=== PATIENT | female | born 1980 | race Caucasian/White ===

== ENCOUNTER 2020-06-13 20:16 | Emergency (ER) | payer OTHER ==
--- OUTSIDE RECORDS SUMMARY | 2020-06-13 20:18 | XMS REPORT | Continuity of Care Document ---
:[address] [facility] t Address [address] [place] [address] Dr. Buckner. [address] [place] [address] Care Team Providers Name Role Phone Jason Del Real DO Attending Clinician Problems This patient has no known problems. Allergies, Adverse Reactions, Alerts This patient has no known allergies or adverse reactions. Medications This patient has no known medications. Procedures This patient has no known procedures. Encounters Start End Encounter Admission Attending Care Care Encounter Source Date/Time Date/Time Type Type Clinicians Facility Department ID 2020-05-06 2020-05-06 Emergency SAM Del Real [id number] 18:43:00 23:57:00 Frida Hernandez [id number] [place] [id number] [place] [id number] Results This patient has no known results.
[2020-06-13 22:19] LABS: Absolute Lymphocytes (CBC) 3.8 K/uL (0.7-4.9); Basophils % 0.9 % (0-1.3); Hematocrit 41.8 % (36.0-45.0); Lymphocytes % 30.2 % (15.3-44.8); MPV 9.6 fL (7.6-11.3); RBC Red Blood Cell Count 4.74 M/uL (3.86-4.86)
[2020-06-13 22:25] LABS: Urine Blood Negative (Negative); Urine Glucose Negative (Negative); Urine Protein Negative (Negative); Urine pH 7.5 (5.0-7.0)
[2020-06-13 22:34] LABS: Protime INR 1.04
[2020-06-13 22:44] LABS: ALT/SGPT 23 U/L (12-78); AST/SGOT 18 U/L (15-37); Albumin 3.3 g/dL (3.4-5.0); Alkaline Phosphatase 119 U/L (45-117); BUN Blood Urea Nitrogen 12 mg/dL (7-18); Bicarbonate 25 mmol/L (21-32); Bilirubin Direct < 0.1 mg/dL (0-0.2); Bilirubin Total 0.3 mg/dL (0.2-1.0); Glucose Level 87 mg/dL (74-106); Magnesium 2.2 mg/dL (1.8-2.4); NT PRO-BNP 141 pg/mL (<125); Potassium 3.6 mmol/L (3.5-5.1); Protein, Total 7.3 g/dL (6.4-8.2); Sodium Level 142 mmol/L (136-145); Troponin (Emerg Dept Use Only) < 0.02 ng/mL (0.0-0.045)
--- NOTE | 2020-06-14 00:24 | ER ---
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 Then my heart felt a little fluttery and I started throwing up. 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 Coronavirus screen: Client denies travel out of the [place] in the last 14 days. nausea, vomiting. Client presents with at least one sign or symptom that may indicate coronavirus-19. Standard/surgical mask placed on the client. Provider contacted for isolation considerations. Ebola Screen: Patient negative for fever greater than or equal to 101.5 degrees Fahrenheit, and additional compatible Ebola Virus Disease symptoms Patient denies exposure to infectious person. Patient denies travel to an Ebola-affected area in the 21 days before illness onset. No symptoms or risks identified at this time. Initial Sepsis Screen: Does the patient meet any 2 criteria? No. Patient's initial sepsis screen is negative. Does the patient have a suspected source of infection? No. Patient's initial sepsis screen is negative. Risk Assessment: Do you want to hurt yourself or someone else? Patient reports no desire to harm self or others. Onset of symptoms was June 13, 2020. 20:37 Method Of Arrival: Ambulatory ca1 20:37 Acuity: OJRDYN 3 ca1 CVT RN: 20:42 LMP N/A - Hysterectomy ca1 Historical: - Allergies: 20:42 Amoxicillin; ca1 20:42 Aspirin; ca1 - Home Meds: 20:42 clopidogrel 75 mg oral tab 1 tab once daily [Active]; carvedilol 3.125 mg oral tab 1 ca1 tab 2 times per day [Active]; atorvastatin 40 mg oral tab 1 tab once daily [Active]; nitroglycerin 0.4 mg SL subl 1 tab [Active]; - PMHx: 20:42 High Cholesterol; ca1 - PSHx: 20:42 open heart surgery; ca1 20:43 Hysterectomy; Cholecystectomy; ca1 - Immunization history:: Flu vaccine is not up to date. - Social history:: Smoking status: Patient reports the use of cigarette tobacco products, smokes one-half pack cigarettes per day. Screenin:54 Abuse screen: Denies threats or abuse. Denies injuries from another. Nutritional mg2 screening: No deficits noted. Tuberculosis screening: No symptoms or risk factors identified. Fall Risk IV access (20 points). Assessment: 21:52 General: Appears in no apparent distress. comfortable, Behavior is calm, cooperative. mg2 Pain: Complains of pain in chest Pain radiates to back of neck. Neuro: Level of Consciousness is awake, alert, obeys commands, Oriented to person, place, time, situation. Neuro: Reports dizziness. Cardiovascular: Capillary refill < 3 seconds Patient's skin is warm and dry. Respiratory: Airway is patent Respiratory effort is even, unlabored, Respiratory pattern is regular, symmetrical. GI: Reports nausea. GI: Abdomen is non-distended. : No signs and/or symptoms were reported regarding the genitourinary system. EENT: No signs and/or symptoms were reported regarding the EENT system. Derm: Skin is intact, is healthy with good turgor, Skin is pink, warm \T\ dry. normal. Musculoskeletal: Circulation, motion, and sensation intact. Capillary refill < 3 seconds. Vital Signs: 20:37 BP 131 / 74; Pulse 73; Resp 16 S; Temp 97.1(TE); Pulse Ox 98% on R/A; Weight 98.43 kg ca1 (R); Height 5 ft. 1 in. (154.94 cm); Pain 6/10; 06/14 00:41 BP 135 / 79; Pulse 70; Resp 18; Temp 98; Pulse Ox 100% on R/A; Pain 0/10; mg2 06/13 20:37 Body Mass Index 41.00 (98.43 kg, 154.94 cm) ca1 ED Course: 06/13 20:20 Patient arrived in ED. bp1 20:40 Triage completed. ca1 20:42 Arm band placed on right wrist. ca1 21:24 Mitchel Sanchez, ELLEI is Primary Nurse. mg2 21:31 Alex Rose PA is PHCP. jmm 21:31 Jason Oliva MD is Attending Physician. jmm 21:45 Inserted saline lock: 20 gauge in right forearm, using aseptic technique. Blood mg2 collected. 21:54 Patient has correct armband on for positive identification. mg2 21:54 No provider procedures requiring assistance completed. mg2 22:26 XRAY Chest (1 view) In Process Unspecified. EDMS 23:10 Inserted saline lock: 22 gauge in left antecubital area, using aseptic technique. Blood ds4 collected. 06/14 00:23 Ramy Lawrence MD is Referral Physician. [facility] 00:42 IV discontinued, intact, bleeding controlled, No redness/swelling at site. Pressure mg2 dressing applied. Administered Medications: No medications were administered Outcome: 00:23 Discharge ordered by . jmm 00:42 Discharged to home ambulatory. mg2 00:42 Condition: stable 00:42 Discharge instructions given to patient, Instructed on discharge instructions, follow up and referral plans. medication usage, Demonstrated understanding of instructions, follow-up care, medications, Prescriptions given X 1. 00:42 Patient left the ED. 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 Then my heart felt a little fluttery and I started throwing up. ca1
--- NOTE | 2020-06-14 00:24 | EDPHYS ---
Physician Documentation [facility] Name: Heather Schmitt Age: 40 yrs Sex: Female : 1980 Arrival Date: 06/13/2020 Time: 20:20 Bed 5 Private MD: ED Physician Jason Oliva HPI: 06/13 21:44 This 40 yrs old Female presents to ER via Ambulatory with complaints of jmm Nausea/Vomiting. 21:44 The patient presents to the emergency department with nausea, vomiting. Onset: The jmm symptoms/episode began/occurred gradually, 3 hour(s) ago. Possible causes: unknown. The symptoms are aggravated by nothing. The symptoms are alleviated by nothing. This is a 40 year old female with a history of ASD, HLP, HTN that presents to the ED with complaints of substernal chest pain beginning approx 3 hours ago. Pain has been constant. Patient states symptoms began with presyncopal episodes and multiple episodes of vomiting. Denies abdominal pain. . 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 - Social history:: Smoking status: Patient reports the use of cigarette tobacco products, smokes one-half pack cigarettes per day. ROS: 21:44 Constitutional: Negative for fever, chills, and weight loss. jmm 21:44 Cardiovascular: Positive for chest pain. 21:44 Abdomen/GI: Positive for vomiting. 21:44 Neuro: Positive for near syncope. 21:44 All other systems are negative. Exam: 21:44 Constitutional: This is a well developed, well nourished patient who is awake, alert, jmm and in no acute distress. Head/Face: atraumatic. Eyes: EOMI, no conjunctival erythema appreciated ENT: Moist Mucus Membranes Neck: Trachea midline, Supple Chest/axilla: Normal chest wall appearance and motion. Cardiovascular: Regular rate and rhythm. No edema appreciated Respiratory: Normal respirations, no respiratory distress appreciated Abdomen/GI: Non distended, soft Back: Normal ROM Skin: General appearance color normal MS/ Extremity: Moves all extremities, no obvious deformities appreciated, no edema noted to the lower extremities Neuro: Awake and alert, normal gait Psych: Behavior is normal, Mood is normal, Patient is cooperative and pleasant Vital Signs: 20:37 BP 131 / 74; Pulse 73; Resp 16 S; Temp 97.1(TE); Pulse Ox 98% on R/A; Weight 98.43 kg ca1 (R); Height 5 ft. 1 in. (154.94 cm); Pain 6/10; 06/14 00:41 BP 135 / 79; Pulse 70; Resp 18; Temp 98; Pulse Ox 100% on R/A; Pain 0/10; mg2 06/13 20:37 Body Mass Index 41.00 (98.43 kg, 154.94 cm) ca1 MDM: 06/13 21:43 Patient medically screened. [facility] 06/14 00:22 Data reviewed: vital signs, nurses notes. Counseling: I had a detailed discussion with [facility] the patient and/or guardian regarding: the historical points, exam findings, and any diagnostic results supporting the discharge/admit diagnosis, lab results, radiology results, the need for outpatient follow up, to return to the emergency department if symptoms worsen or persist or if there are any questions or concerns that arise at home. ED course: Patient is alert and non toxic in appearance in the ED. Patient refuses admission for chest pain. Patient advised to follow up with cardio for further evaluation. Patient is otherwise given strict return precautions. patient understood and agrees with the plan of care. . 06/13 21:34 Order name: Basic Metabolic Panel mg2 06/13 21:34 Order name: CBC with Diff mg2 06/13 21:34 Order name: LFT's mg2 06/13 21:34 Order name: Magnesium mg2 06/13 21:34 Order name: NT PRO-BNP mg2 06/13 21:34 Order name: PT-INR mg2 06/13 21:34 Order name: Troponin (emerg Dept Use Only) mg2 06/13 21:35 Order name: Basic Metabolic Panel; Complete Time: 22:44 EDMS 04 21:35 Order name: CBC with Automated Diff; Complete Time: 22:25 EDMS 04 21:35 Order name: Liver (Hepatic) Function; Complete Time: 22:44 EDMS 04 21:35 Order name: Magnesium; Complete Time: 22:44 EDMS 04 21:35 Order name: NT PRO-BNP; Complete Time: 22:44 EDMS 06/13 21:35 Order name: Protime (+INR); Complete Time: 22:37 EDMS 06/13 21:35 Order name: Troponin (Emerg Dept Use Only); Complete Time: 22:44 EDMS 06/13 20:43 Order name: EKG; Complete Time: 20:44 ca1 06/13 20:43 Order name: EKG - Nurse/Tech; Complete Time: 20:43 ca1 06/13 21:34 Order name: XRAY Chest (1 view) mg2 06/13 21:34 Order name: Cardiac monitoring; Complete Time: 21:52 mg2 06/13 21:34 Order name: IV Saline Lock; Complete Time: 21:52 mg2 06/13 21:34 Order name: Labs collected and sent; Complete Time: 21:52 mg2 06/13 21:34 Order name: O2 Per Protocol; Complete Time: 21:52 mg2 06/13 21:34 Order name: O2 Sat Monitoring; Complete Time: 21:52 mg2 06/13 21:43 Order name: Urine Test (obtain specimen); Complete Time: 22:24 [facility] 06/13 22:18 Order name: D-Dimer; Complete Time: 22:37 EDAR 06/13 22:25 Order name: Urine --Ancillary (enter results); Complete Time: 22:48 tt3 06/13 22:25 Order name: Urine Dipstick-Ancillary; Complete Time: 22:28 EDMS 06/13 22:43 Order name: Troponin (emerg Dept Use Only): draw at 1105; Complete Time: 00:22 [facility] Administered Medications: No medications were administered Disposition: 00:47 Co-signature as Attending Physician, Jason Oliva MD. ma2 Disposition: 06/14/20 00:23 Discharged to Home. Impression: Chest pain, unspecified. - Condition is Stable. - Discharge Instructions: Nonspecific Chest Pain. - Prescriptions for Zofran ODT 4 mg Oral tablet,disintegrating - place 1 tablet by TRANSLINGUAL route every 4-6 hours; 20 tablet. - Medication Reconciliation Form, Thank You Letter, Antibiotic Education, Prescription Opioid Use form. - Follow up: Ramy Lawrence MD; When: 2 - 3 days; Reason: Recheck today's complaints, Continuance of care, Re-evaluation by your physician. Signatures: Dispatcher [employer] [facility] Alex Rose PA PA Jason Dumont MD MD ma2 Mitchel Sanchez, RN RN mg2 Hue Fernandez RN RN ca1 Corrections: (The following items were deleted from the chart) 06/13 22:18 21:44 D-DIMER+COAG.LAB.BRZ ordered. [facility] 06/14 00:42 00:23 06/14/2020 00:23 Discharged to Home. Impression: Chest pain, unspecified. mg2 Condition is Stable. Forms are Medication Reconciliation Form, Thank You Letter, Antibiotic Education, Prescription Opioid Use. Follow up: Ramy Lawrence; When: 2 - 3 days; Reason: Recheck today's complaints, Continuance of care, Re-evaluation by your physician. carine
[2020-06-14 01:23] VITALS: BP 135/79; TEMP 98; O2SAT 100
--- NOTE | 2020-06-14 12:53 | RAD REPORT ---
EXAM DESCRIPTION: Chest Single View CLINICAL HISTORY: 1 years Female, CHEST PAIN COMPARISON: Chest radiograph dated 05/06/2019 FINDINGS/IMPRESSION: No focal lung consolidation. Interstitial edema. No pleural effusion. No pneumothorax. Unchanged prior median sternotomy. Cardiomediastinal silhouette is unchanged. No acute osseous abnormality. Electronically signed by: Randy Fairbanks DO 06/13/2020 10:50 PM CDT Due to temporary technical issues with the PACS/Fluency reporting system, reports are being signed by the in house radiologists without review as a courtesy to insure prompt reporting. The interpreting radiologist is fully responsible for the content of the report.
--- NOTE | 2020-06-14 16:35 | EKG ---
Test Date: 2020-06-13 Test Time: 20:48:17 [employer]: SARAH MEASUREMENT RESULTS: Intervals: Rate: 73 NH: 140 QRSD: 80 QT: 394 QTc: 434 [place]: P: 64 NH: 140 QRS: 98 T: 71 INTERPRETIVE STATEMENTS: Normal sinus rhythm Rightward axis RSR' or QR pattern in V1 suggests right ventricular conduction delay Nonspecific ST abnormality Abnormal ECG No previous ECG available for comparison Electronically Signed On 06-14-20 16:33:01 CDT by Ramy Lawrence
== END 2020-06-14 00:42 | disposition home or self-care (01) ==
LOC: ER 20:16
DX: R07.9 Chest pain, unspecified (principal); R11.2 Nausea with vomiting, unspecified; F17.210 Nicotine dependence, cigarettes, uncomplicated; E78.00 Pure hypercholesterolemia, unspecified
CPT/HCPCS: 36415; 71045; 80048; 80076; 81003; 81025; 83735; 83880; 84484; 85025; 85379; 85610; 93005; 99284

== ENCOUNTER 2020-12-29 21:35 | Emergency (ER) | payer OTHER ==
[2020-12-29] MEDS ORDERED: MORPHINE 2 MG/ML SYR ONE (23:06)
[2020-12-29] MEDS ORDERED: ONDANSETRON 4 MG/2 ML VIAL ONE (23:06)
[2020-12-29 23:09] LABS: Absolute Lymphocytes (CBC) 3.7 K/uL (0.7-4.9); Basophils % 1.5 % (0-1.3); Hematocrit 39.3 % (36.0-45.0); Lymphocytes % 33.2 % (15.3-44.8); MPV 8.9 fL (7.6-11.3); RBC Red Blood Cell Count 4.45 M/uL (3.86-4.86)
[2020-12-29 23:22] LABS: Protime INR 0.97
[2020-12-29 23:26] LABS: ALT/SGPT 29 U/L (12-78); AST/SGOT 19 U/L (15-37); Albumin 3.4 g/dL (3.4-5.0); Alkaline Phosphatase 119 U/L (45-117); BUN Blood Urea Nitrogen 14 mg/dL (7-18); Bicarbonate 27 mmol/L (21-32); Bilirubin Direct < 0.1 mg/dL (0-0.2); Bilirubin Total 0.2 mg/dL (0.2-1.0); Glucose Level 136 mg/dL (74-106); Magnesium 2.2 mg/dL (1.8-2.4); NT PRO-BNP 127 pg/mL (<125); Potassium 3.6 mmol/L (3.5-5.1); Protein, Total 7.8 g/dL (6.4-8.2); Sodium Level 142 mmol/L (136-145); Troponin (Emerg Dept Use Only) < 0.02 ng/mL (0.0-0.045)
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
[2020-12-30 03:12] VITALS: BP 142/80; TEMP 98.6; O2SAT 96
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
--- NOTE | 2020-12-31 14:24 | EKG ---
Test Date: 2020-12-29 Test Time: 22:10:52 Silver Steward: SHAUN MEASUREMENT RESULTS: Intervals: Rate: 72 DE: 154 QRSD: 84 QT: 400 QTc: 438 [place]: P: 58 DE: 154 QRS: 81 T: 73 INTERPRETIVE STATEMENTS: Normal sinus rhythm Nonspecific ST and T wave abnormality Abnormal ECG Compared to ECG 06/13/2020 20:48:17 Right-axis deviation no longer present ST (T wave) deviation still present Electronically Signed On 12-31-20 14:21:51 CDT by Ramy Lawrence
== END 2020-12-30 02:45 | disposition home or self-care (01) ==
LOC: ER 21:35
DX: R07.9 Chest pain, unspecified (principal); R10.9 Unspecified abdominal pain; V49.40XA Driver injured in collision with unspecified motor vehicles in traffic accident, initial encounter; Z88.1 Allergy status to other antibiotic agents; Z88.6 Allergy status to analgesic agent; F17.210 Nicotine dependence, cigarettes, uncomplicated
CPT/HCPCS: 93005; 85025; 80048; 36415; 83735; 85610; 80076; 84484; 83880; 70450; 72125; 71260; 74177; 71045; 96375; 96374; 99284; Q9967; J2270; J2405

== ENCOUNTER 2021-01-20 18:44 | Emergency (ER) | payer OTHER, SELFPAY ==
--- OUTSIDE RECORDS SUMMARY | 2021-01-20 18:47 | XMS REPORT | Continuity of Care Document ---
:1980 Author Organization [facility] t Address [address] [place] [address] Care Team Providers Name Role Phone Jason Mata DO Attending Clinician Jason MATA Attending Clinician Unavailable Problems Condition Condition Condition Status Onset Resolution Last Treating Co mments Source Name Details Category Date Date Treatment Clinician Date No known No known Disease Unive rs active active ity of problems problems [facility] Allergies, Adverse Reactions, Alerts Allergy Allergy Status Severity Reaction(s) Onset Inactive Treating Comm ents Source Name Type Date Date Clinician Amoxicil Propensi Active Rash Univer s glenis ty to 3-05 ity of adverse 00:00: [place] reaction 00 Medical [facility] Aspirin Propensi Active Rash 2020-0 Univers ty to 3-05 ity of adverse 00:00: [place] reaction 00 Medical Branch AMOXICIL DRUG Active Rash 2020-0 Univers GLENIS INGREDI 3-05 ity of 00:00: [place] 00 Medical Branch ASPIRIN DRUG Active Rash 2020-0 Univers INGREDI 3-05 ity of 00:00: [place] 00 Medical Branch Social History Social Habit Start Date Stop Date Quantity Comments Source Sex Assigned At Uni versity of [facility] Exposure to SARS-CoV-2 Not sure [facility] [place] (event) [facility] Smoking Status Start Date Stop Date Source Unknown if ever smoked Universit y of [facility] Medications Ordered Filled Start Stop Current Ordering Indication Dosage Frequency Signature Comments Components Source Medication Medication Date Date Medication? Clinician (SIG) Name Name FENTanyl PF 2020- No 50ug 50 mcg, Un shady (SUBLIMAZE 3-06 03-06 Slow IV ity o f (PF)) 04:15: 03:14 Push, [place] injection 00 :00 ONCE, 1 Medical 50 mcg dose, Fri Geff 05/06/20 at 2215, Routine maalox:diph 2020- No 15mL 15 mL, Uni vers enhydrAMINE 05-07 Oral, ity of :lidocaine 03:15: 03:14 ONCE, 1 Tommy as 2 % viscous 00 :00 dose, Fri Med ical 1:1:1 05/06/20 at Geff (FIRST-MOUT 2114, IRIS HWASH BLM) oral suspension 15 mL ondansetron 2020- No 4mg 4 mg, Slow Univers (ZOFRAN 05-07 IV Push, ity of (PF)) 03:00: 03:02 ONCE, 1 [place] injection 4 00 :00 dose, Fri Med ical mg 05/06/20 at Branch 2100, IRIS ketorolac 2020- No 30mg 30 mg, Unive rs (TORADOL) 05-07 Slow IV ity of injection 01:45: 01:51 Push, [place] 30 mg 00 :00 ONCE, 1 Medical dose, [facility] 05/06/20 at 1945, IRIS
Fa culty member approving Restricted medication : FRIDA MATA sodium Yes 5mL 5 mL, Univers chloride 05-07 Intravenou ity o f (NS) 00:54: s, PRN, [place] injection 5 41 Starting Medi cody mL [facility] 05/06/20 Branch at 1854, Until Discontinu ed, Routine, IV line flushing No known No Univers medications [facility] Vital Signs Vital Name Observation Time Observation Value Comments Source Systolic blood 2020-05-07 05:00:00 135 mm[Hg] Univer sity of pressure [facility] Diastolic blood 2020-05-07 05:00:00 76 mm[Hg] Unive rsity of pressure [facility] Heart rate 2020-05-07 05:00:00 63 [facility] Respiratory rate 2020-05-07 05:00:00 20 /min [facility] Oxygen saturation in 2020-05-07 05:00:00 95 /min University of Arterial blood by [facility] Pulse oximetry Branch Body temperature 2020-05-07 00:50:00 37 Lacy [facility] Body height 2020-05-07 00:48:00 157.5 cm Universi ty [facility] Body weight 2020-05-07 00:48:00 97.523 kg Universi ty [facility] BMI 2020-05-07 00:48:00 39.32 kg/m2 Universi ty [facility] Systolic blood 2020-05-07 05:00:00 135 mm[Hg] Univer sity of [facility] Diastolic blood 2020-05-07 05:00:00 76 mm[Hg] [facility] Heart rate 2020-05-07 05:00:00 63 /min [facility] Respiratory rate 2020-05-07 05:00:00 20 /min [facility] Oxygen saturation in 2020-05-07 05:00:00 95 /min [facility] Arterial blood by [facility] Pulse oximetry Branch Body temperature 2020-05-07 00:50:00 37 Lacy [facility] Body height 2020-05-07 00:48:00 157.5 cm Universi ty [facility] Body weight 2020-05-07 00:48:00 97.523 kg [facility] BMI 2020-05-07 00:48:00 39.32 kg/m2 [facility] Procedures Procedure Date / Time Performing Clinician Source Performed TROPONIN I 2020-05-07 03:04:00 Frida Mata [facility] XR CHEST 1 VW 2020-05-07 01:09:33 Heladio Robertson [facility] NOTICE OF PRIVACY 2020-05-07 01:09:22 Doctor Unassigned, No [facility] PRACTICES Name Medical Branch LIPASE 2020-05-07 00:57:00 Heladio Robertson [facility] TROPONIN I 2020-05-07 00:57:00 Heladio Robertson [facility] COMP. METABOLIC PANEL 2020-05-07 00:57:00 Heladio Robertson [facility] ([id number]) Medical Branch CBC WITH DIFF 2020-05-07 00:57:00 Robertson, [facility] o f [facility] PROTHROMBIN TIME / INR 2020-05-07 00:57:00 [facility]io [facility] ACTIVATED PARTIAL 2020-05-07 00:57:00 Singer Heladio [facility] THRMPLAS [facility] N-TERMINAL PRO-BNP 2020-05-07 00:57:00 Frida Mata [facility] CONSENT/REFUSAL FOR 2020-05-07 00:39:34 Doctor Unassigned, No Un [facility] DIAGNOSIS AND TREATMENT Name Medical Branch Encounters Start End Encounter Admission Attending Care Care Encounter Source Date/Time Date/Time Type Type Clinicians Facility Department ID 2020-05-06 2020-05-06 [facility] [id number] [facility] 18:43:00 23:57:[id number] [facility] [id number] [facility] [id number] [address] 2020-05-06 2020-05-06 [facility] [id number] 18:43:00 23:57:00 Frida Hernandez [id number] [place] [id number] [place] [id number] [facility] 2020-05-06 2020-05-06 Emergency [facility] [id number] [facility] 18:43:00 18:43:00 FRIDA alvares [facility] Results Test Description Test Time Test Comments Results Result Comments Source Troponin I 2020-05-07 03:35:00 Test Item Value Reference Range Interpretation Comme nts TROPONIN I (test code = 0.001 ng/mL See_Comment [Au tomated message] The [id number]) system which ge nerated this result tra nsmitted reference range : <=0.034. The reference r dagoberto was not used to int erpret this result as normal/abnormal . AMADOU (test code = AMADOU) Equal or Less than 0.034 ng/ml---Normal ?Note: Cardiac troponin begins to rise 3-4 hours after the onset of ischemia. Repeat in 4-6 hours if the sample was drawn within 3-4 hours of the onset of the symptom and found normal. Between 0.035 and 0.120 ng/mL--- Borderline. Questionable myocardial injury or necrosis ? ?Note: Serial measurement may be necessary to confirm or exclude the diagnosis of myocardial injury or necrosis; Clinical correlation (symptoms, EKGs, imaging studies, and others) required; Repeat in 4-6 hours if clinically indicated. ? Equal or Higher than 0.121 ng/mL---Abnormal. Myocardial Injury or Necrosis Likely ? Biotin has been reported to cause a negative bias, interpret results relative to patient's use of biotin. ? Lab Interpretation (test Normal code = 06309-7) [facility] [id number] 02:42:22 No acute cardiopulmonary abnormality. Preliminary Report Dictated by Resident: Flaca Bowden MD., have reviewed this study and agree with theabove report.XR CHEST 1 VW HISTORY:40 years-old; Female; cp COMPARISON: None TECHNIQUE: SINGLE VIEW CHEST RADIOGRAPH. FINDINGS: The lungs are well-expanded and clear with no focal consolidation. There isno pleural effusion or pneumothor ax. The cardiac silhouette is within normal limits. There is no acute osseous abnormality. Multiple sternotomy wires are seen. [facility], Radiant Results Inft User - 05/06/2020 8:43 PM CSTXR CHEST 1 VWHISTORY: 40 years-old; Female; cp COMPARISON: NoneTECHNIQUE: SINGLE VIEW CHEST RADIOGRAPH.FINDINGS:The lungs are well-expanded and clear with no focal consolidation. There isno pleural effusion or pneumothorax.The cardiac silhouette is within normal limits.There is no acute osseous abnormality. Multiple sternotomy wires are seen.IMPRESSIONNo acute cardiopulmonary abnormality.Preliminary Report Dictated byResident: Flaca Harvey MD., have reviewed this study and agree with theabovereport.[facility] [id number] 02:00:00 Test Item Value Reference Range Interpretation Comments NT-proBNP (test code 126 pg/mL See_Comment H [Autom ated = [id number]) message] The system which generated this result transmitted reference range : <=125. The reference range was not used to interpret this result as normal/abnormal . AMADOU (test code = AMADOU) Biotin has been reported to cause a negative bias, interpret results relative to patient's use of biotin. Lab Interpretation Abnormal (test code = 98166-1) [facility] [id number] 01:53:00 Test Item Value Reference Range Interpretation Comments TROPONIN I (test 0.002 ng/mL See_Comment [Automated code = 7854028201) message] The system which generated this result transmitted reference range : <=0.034. The reference range was not used to interpret this result as normal/abnormal . AMADOU (test code = Equal or Less than AMADOU) 0.034 ng/ml---Normal ?Note: Cardiac troponin begins to rise 3-4 hours after the onset of ischemia. Repeat in 4-6 hours if the sample was drawn within 3-4 hours of the onset of the symptom and found normal. Between 0.035 and 0.120 ng/mL--- Borderline. Questionable myocardial injury or necrosis ? ?Note: Serial measurement may be necessary to confirm or exclude the diagnosis of myocardial injury or necrosis; Clinical correlation (symptoms, EKGs, imaging studies, and others) required; Repeat in 4-6 hours if clinically indicated. ? Equal or Higher than 0.121 ng/mL---Abnormal. Myocardial Injury or Necrosis Likely ? Biotin has been reported to cause a negative bias, interpret results relative to patient's use of biotin. ? Lab Interpretation Normal (test code = 09760-7) [facility]OLIC PANEL ([id number])2020-05-07 01:43:00 Test Item Value Reference Range Interpretation Comments NA (test code = 140 mmol/L 135-145 6300833093) K (test code = 3.8 mmol/L 3.5-5 6896597634) CL (test code = 104 mmol/L 98-108 8517386177) CO2 TOTAL (test code = 29 mmol/L 23-31 1807798118) AGAP (test code = 2-16 5631408169) BUN (test code = 15 mg/dL 7-23 0468294490) GLUCOSE (test code = 85 mg/dL 70-110 2410791566) CREATININE (test code = 0.69 mg/dL 0.5-1.04 7196758976) TOTAL BILI (test code = 0.5 mg/dL 0.1-1.3 8893798070) CALCIUM (test code = 10.0 mg/dL 8.6-10.6 9054507039) T PROTEIN (test code = 7.6 g/dL 6.3-8.2 3405124830) ALBUMIN (test code = 4.4 g/dL 3.5-5 8089448583) ALK PHOS (test code = 126 U/L 34-122 H 3076126333) ALTv (test code = 21 U/L 5-35 1742-6) AST(SGOT) (test code = 25 U/L 13-40 8508466630) eGFR Calculation mL/min/1.73m2 (Non-) (test code = 5227848363) eGFR Calculation mL/min/1.73m2 () (test code = 5015945506) AMADOU (test code = AMADOU) Association of Glomerular Filtration Rate (GFR) and Staging of Kidney Disease* + --+ --+ ------+| GFR (mL/min/1.73 m2) ?| With Kidney Damage ?| ?Without Kidney Damage+ --------+ --------+ +| ?>90 ?| ?Stage one ?| ? Normal ?+ ---+ ---+ -------+| ?60-89 ?| ?Stage two ?| ? Decreased GFR ? + --+ --+ ------+| ?30-59 ?| ?Stage three ?| ? Stage three ? + --+ --+ ------+| ?15-29 ?| ?Stage four ? | ? Stage four ?+ ---+ ---+ -------+| ?<15 (or dialysis) ? ?| ?Stage five ? | ? Stage five ?+ ---+ ---+ -------+ *Each stage assumes the associated GFR level has been in effect for at least three months. ?Stages 1 to 5, with or without kidney disease, indicate chronic kidney disease. Notes: Determination of stages one and two (with eGFR >59mL/min/1.73 m2) requires estimation of kidney damage for at least three months as defined by structural or functional abnormalities of the kidney, manifested by either:Pathological abnormalities or Markers of kidney damage (including abnormalities in the composition of the blood or urine or abnormalities in imaging tests). Lab Interpretation Abnormal (test code = 43656-1) [facility], [id number] 01:42:00 Test Item Value Reference Range Interpretation Comments LIPASE (test code = 7195791343) 72 U/L 0-220 Lab Interpretation (test code = Normal 97831-6) [facility] Hospital[facility]PTT2021-03-06 01:39:00 Test Item Value Reference Range Interpretation Comments APTT Patient (test See_Comment [Automat ed code = 3173-2) message] The system which generated this result transmitted reference range : 23 - 38 Seconds . The reference range was not used to interpr et this result as normal/abnormal . AMADOU (test code = AMADOU) The [facility] patient population mean normal value for aPTT is 30 seconds. Lab Interpretation Normal (test code = 93778-3) [facility] HospitalPROTHROMBIN TIME / [id number] 01:36:00 Test Item Value Reference Range Interpretation Comments PROTIME PATIENT (test See_Comment [Auto mated message] code = 5964-2) The system wh ich generated this result transmitted ref erence range: 12.0 - 1 4.7 Seconds. The re ference range was not u sed to interpret this result as normal/abnor mal. INR (test code = 6301-6) Nor mal INR <1.1; Warfarin Therap eutic range 2.0 to 3. 0 or 2.5 to 3.5, dep ending upon the indica tions. Lab Interpretation (test Normal code = 63754-1) [facility] WITH [id number] 01:32:00 Test Item Value Reference Range Interpretation Comments WBC (test code = See_Comment H [Automated 6690-2) message] The sy stem which generated this result transmitted reference range : 4.30 - 11.10 10*3/?L. The reference range was not used to interpret this result as normal/abnormal . RBC (test code = See_Comment [Automated 789-8) message] The sy stem which generated this result transmitted reference range : 3.93 - 5.25 10*6/?L. The reference range was not used to interpret this result as normal/abnormal . HGB (test code = 15.1 g/dL 11.6-15 H 718-7) HCT (test code = 45.0 % 35.7-45.2 4544-3) MCV (test code = 89.5 fL 80.6-95.5 787-2) MCH (test code = 30.0 pg 25.9-32.8 785-6) MCHC (test code = 33.6 g/dL 31.6-35.1 786-4) RDW-SD (test code = 42.9 fL 39-49.9 36122-0) RDW-CV (test code = 13.1 % 12-15.5 788-0) PLT (test code = See_Comment H [Automated 777-3) message] The sy stem which generated this result transmitted reference range : 166 - 358 10*3/ ?L. The reference r dagoberto was not used to interpret this result as normal/abnormal . MPV (test code = 11.1 fL 9.5-12.9 83082-5) NRBC/100 WBC (test See_Comment [Automat ed code = 7721216374) message] The system which generated this result transmitted reference range : 0.0 - 10.0 /100 WBCs. The refer ence range was not u sed to interpret th is result as normal/abnormal . NRBC x10^3 (test code <0.01 See_Comment [Auto mated = 3146413395) message] The s ystem which generated this result transmitted reference range : 10*3/?L. The reference range was not used to interpret this result as normal/abnormal . GRAN MAT (NEUT) % 58.0 % (test code = 770-8) IMM GRAN % (test code 0.50 % = 8736601117) LYMPH % (test code = 32.3 % 736-9) MONO % (test code = 6.7 % 5905-5) EOS % (test code = 1.6 % 713-8) BASO % (test code = 0.9 % 706-2) GRAN MAT x10^3(ANC) 6.47 10*3/uL 1.88-7.09 (test code = 8193182017) IMM GRAN x10^3 (test 0.06 10*3/uL 0-0.06 code = 7672377336) LYMPH x10^3 (test code 3.61 10*3/uL 1.32-3.29 H = 731-0) MONO x10^3 (test code 0.75 10*3/uL 0.33-0.92 = 742-7) EOS x10^3 (test code = 0.18 10*3/uL 0.03-0.39 711-2) BASO x10^3 (test code 0.10 10*3/uL 0.01-0.07 H = 704-7) Lab Interpretation Abnormal (test code = 46906-4) [facility]"
[2021-01-20] MEDS ORDERED: HYDROCODONE/APAP 5/325 MG TAB ONE (19:48)
--- NOTE | 2021-01-20 19:58 | RAD REPORT ---
EXAM DESCRIPTION: RAD - Shoulder Left 2 View - 01/20/2021 7:49 pm CLINICAL HISTORY: Left shoulder pain FINDINGS: No fracture or dislocation is seen. No significant bone or joint abnormality noted
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
--- NOTE | 2021-01-20 20:35 | EDPHYS ---
Physician Documentation [facility] Name: Heather Schmitt Age: 40 yrs Sex: Female : 1980 Arrival Date: 01/20/2021 Time: 18:50 Bed 11 Private MD: ED Physician Bhavin Montoya HPI: 01/20 19:41 This 40 yrs old Female presents to ER via Ambulatory with complaints of Shoulder Injury.mh7 19:41 The patient or guardian complains of pain, that is acute. left shoulder. Context: The mh7 problem was sustained at an unknown site, resulted from an unknown reason, The patient experiences decreased range of motion, when attempts to raise arm, The patient reports no obvious deformity. Onset: The symptoms/episode began/occurred 1 week(s) ago. Modifying factors: the symptoms are alleviated by remaining still, shoulder immobilizer, The symptoms are aggravated by lifting weight, movement, rotation of arm. Associated signs and symptoms: Pertinent negatives: abdominal pain, chest pain, diaphoresis, dyspnea, neck pain, shortness of breath, tingling. Severity of symptoms: At their worst the symptoms were moderate, 4 day(s) ago, in the emergency department the symptoms are unchanged. Treatment prior to arrival includes: prescription medications, Ultram or Ultracet, yesterday. The patient has been recently seen by a physician: the patient's primary care provider. 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 - Social history:: Smoking status: Patient reports the use of cigarette tobacco products, smokes one-half pack cigarettes per day. ROS: 19:41 Constitutional: Negative for fever, chills, and weight loss, Eyes: Negative for injury, mh7 pain, redness, and discharge, ENT: Negative for injury, pain, and discharge, Neck: Negative for injury, pain, and swelling, Cardiovascular: Negative for chest pain, palpitations, and edema, Respiratory: Negative for shortness of breath, cough, wheezing, and pleuritic chest pain, Abdomen/GI: Negative for abdominal pain, nausea, vomiting, diarrhea, and constipation, Back: Negative for injury and pain, : Negative for injury, bleeding, discharge, and swelling, Skin: Negative for injury, rash, and discoloration, Neuro: Negative for headache, weakness, numbness, tingling, and seizure, Psych: Negative for depression, anxiety, suicide ideation, homicidal ideation, and hallucinations, Allergy/Immunology: Negative for hives, rash, and allergies, Endocrine: Negative for neck swelling, polydipsia, polyuria, polyphagia, and marked weight changes, Hematologic/Lymphatic: Negative for swollen nodes, abnormal bleeding, and unusual bruising. Exam: 19:41 Constitutional: This is a well developed, well nourished patient who is awake, alert, mh7 and in no acute distress. Head/Face: Normocephalic, atraumatic. Eyes: Pupils equal round and reactive to light, extra-ocular motions intact. Lids and lashes normal. Conjunctiva and sclera are non-icteric and not injected. Cornea within normal limits. Periorbital areas with no swelling, redness, or edema. Neck: Trachea midline, no thyromegaly or masses palpated, and no cervical lymphadenopathy. Supple, full range of motion without nuchal rigidity, or vertebral point tenderness. No Meningismus. Chest/axilla: Normal chest wall appearance and motion. Nontender with no deformity. No lesions are appreciated. Cardiovascular: Regular rate and rhythm with a normal S1 and S2. No gallops, murmurs, or rubs. Normal PMI, no JVD. No pulse deficits. Respiratory: Lungs have equal breath sounds bilaterally, clear to auscultation and percussion. No rales, rhonchi or wheezes noted. No increased work of breathing, no retractions or nasal flaring. Abdomen/GI: Soft, non-tender, with normal bowel sounds. No distension or tympany. No guarding or rebound. No evidence of tenderness throughout. Back: No spinal tenderness. No costovertebral tenderness. Full range of motion. Skin: Warm, dry with normal turgor. Normal color with no rashes, no lesions, and no evidence of cellulitis. 19:41 Neuro: Awake and alert, GCS 15, oriented to person, place, time, and situation. Cranial nerves II-XII grossly intact. Motor strength 5/5 in all extremities. Sensory grossly intact. Cerebellar exam normal. Normal gait. Psych: Awake, alert, with orientation to person, place and time. Behavior, mood, and affect are within normal limits. 19:41 Musculoskeletal/extremity: Extremities: noted in the left shoulder: pain, tenderness, ROM: limited active range of motion due to pain, in the left shoulder, limited passive range of motion due to pain, in the left shoulder, Circulation is intact in all extremities. Sensation intact. Compartment Syndrome exam of affected extremity: is normal. no numbness, no tingling, no sensation deficit, no palor, no weak pulses, Joints: the left shoulder displays painful range of motion, tenderness, Weight bearing: able to fully bear weight, without difficulty, Tendon exam: specific tendon testing normal through active and passive range of motion Vital Signs: 19:11 BP 147 / 104; Pulse 76; Resp 16; Pulse Ox 98% on R/A; Weight 96.62 kg; Height 5 ft. 3 iw in. (160.02 cm); Pain 8/10; 19:59 Temp 97.9(O); aj1 19:11 Body Mass Index 37.73 (96.62 kg, 160.02 cm) iw MDM: 20:31 Differential diagnosis: Anterior dislocation without fracture, Posterior dislocation mh7 without fracture, DJD, tendonitis, Musculoskeletal pain. Data reviewed: vital signs, nurses notes, old medical records, radiologic studies, plain films. Data interpreted: Pulse oximetry: on room air is 98 %. Interpretation: normal. Counseling: I had a detailed discussion with the patient and/or guardian regarding: the historical points, exam findings, and any diagnostic results supporting the discharge/admit diagnosis, the presence of at least one elevated blood pressure reading (>120/80) during this emergency department visit, radiology results, the need for outpatient follow up, a orthopedic surgeon, to return to the emergency department if symptoms worsen or persist or if there are any questions or concerns that arise at home. Response to treatment: the patient's symptoms have markedly improved after treatment. 20:34 Patient medically screened. mh7 20:35 ED course: Well-appearing, no acute distress, vital signs stable, neurovascular intact, mh7 no focal neurological deficits. Discussed test results and findings with the patient and recommend follow-up with orthopedics for further evaluation. Patient has a recently filled prescription for Meloxicam that was prescribed by her doctor but she has not started taking the medication. Advised her to take medication as prescribed. She has a shoulder immobilizer which she has been using.. 01/20 19:40 Order name: Shoulder Left (2 View) XRAY; Complete Time: 20:21 [facility] Administered Medications: 19:55 Drug: Brigantine (HYDROcodone-acetaminophen) 5 mg-325 mg 1 tabs Route: PO; aj1 Disposition Summary: 01/20/21 20:34 Discharge Ordered Location: Home [facility] Problem: an ongoing problem [facility] Symptoms: have improved [facility] Condition: Stable [facility] Diagnosis - Shoulder Pain, Left mh7 - Musculoskeletal Pain [facility] Followup: [facility] - With: Private Physician - When: 1 - 2 days - Reason: Worsening of condition, Recheck today's complaints, Continuance of care, Re-evaluation by your physician Followup: [facility] - With: Abdon Benavides MD - When: 2 - 3 days - Reason: Worsening of condition, Further diagnostic work-up, Recheck today's complaints Discharge Instructions: - Discharge Summary Sheet 7 - Musculoskeletal Pain 7 - Shoulder Pain, [id number] [facility] Forms: - Medication Reconciliation Form [facility] - Thank You Letter [facility] - Antibiotic Education [facility] - Prescription Opioid Use [facility] Signatures: Dispatcher [employer] Domenica Jaimes RN RN aj1 Inga Del Real RN RN iw Bhavin Montoya MD MD [facility]
[2021-01-20 21:39] VITALS: BP 147/104; O2SAT 98
[2021-01-20 21:40] VITALS: TEMP 97.9
== END 2021-01-20 20:49 | disposition home or self-care (01) ==
LOC: ER 18:44
DX: M79.18 Myalgia, other site (principal); F17.210 Nicotine dependence, cigarettes, uncomplicated; Z88.6 Allergy status to analgesic agent; Z88.1 Allergy status to other antibiotic agents
CPT/HCPCS: 99283

== ENCOUNTER 2021-09-18 06:31 | Emergency (ER) | payer SELFPAY ==
--- NOTE | 2021-09-18 09:28 | EDPHYS ---
Physician Documentation [facility] Name: Heather Schmitt Age: 41 yrs Sex: Female : 1980 Arrival Date: 09/18/2021 Time: 06:35 Bed 11 Private MD: ED Physician Lavon Wooten HPI: 09/18 09:27 This 41 yrs old Female presents to ER via Ambulatory with complaints of Fever, Pain All ms3 Over. 09:27 The patient reports fever, that was measured at 102.6 degrees Fahrenheit. Onset: The ms3 symptoms/episode began/occurred 3 day(s) ago. Modifying factors: there are no obvious modifying factors. Associated signs and symptoms: Pertinent positives: chills, cough. Severity of symptoms: At their worst the symptoms were moderate in the emergency department the symptoms are unchanged Pain is currently a / 10. 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 - Social history:: Smoking status: Patient reports the use of cigarette tobacco products. ROS: 09:27 Eyes: Negative for injury, pain, redness, and discharge, Neck: Negative for injury, ms3 pain, and swelling, Cardiovascular: Negative for chest pain, and palpitations. 09:27 : Negative for injury, bleeding, discharge, and swelling, MS/Extremity: Negative for injury and deformity, Skin: Negative for injury, rash, and discoloration. 09:27 Constitutional: Positive for body aches, chills, fever. 09:27 Respiratory: Positive for cough. 09:27 All other systems are negative. Exam: 09:27 Constitutional: This is a well developed, well nourished patient who is awake, alert, ms3 and in no acute distress. Head/Face: Normocephalic, atraumatic. ENT: Nares patent. No nasal discharge, no septal abnormalities noted. Tympanic membranes are normal and external auditory canals are clear. Oropharynx with no redness, swelling, or masses, exudates, or evidence of obstruction, uvula midline. Mucous membranes moist. Neck: Trachea midline, no cervical lymphadenopathy. Supple, full range of motion without nuchal rigidity, or vertebral point tenderness. No Meningismus. Chest/axilla: Normal chest wall appearance and motion. Nontender with no deformity. Cardiovascular: Regular rate and rhythm with a normal S1 and S2. No gallops, murmurs, or rubs. Normal PMI, no JVD. No pulse deficits. Respiratory: Lungs have equal breath sounds bilaterally, clear to auscultation and percussion. No rales, rhonchi or wheezes noted. No increased work of breathing, no retractions or nasal flaring. Abdomen/GI: Soft, non-tender, with normal bowel sounds. No distension or tympany. No guarding or rebound. No evidence of tenderness throughout. Psych: Awake, alert, with orientation to person, place and time. Behavior, mood, and affect are within normal limits. Vital Signs: 06:55 BP 119 / 90; Pulse 94; Resp 18 S; Temp 98.3(O); Pulse Ox 98% on R/A; Weight 97.52 kg bb (R); Height 5 ft. 1 in. (154.94 cm) (R); Pain 7/10; 06:55 Body Mass Index 40.62 (97.52 kg, 154.94 cm) bb MDM: 09:13 Patient medically screened. ms3 09:27 Differential diagnosis: viral Infection, URI, COVID. ms3 09:27 Data reviewed: vital signs, nurses notes, lab test result(s), and as a result, I will ms3 discharge patient. Counseling: I had a detailed discussion with the patient and/or guardian regarding: the historical points, exam findings, and any diagnostic results supporting the discharge/admit diagnosis, lab results, the need for outpatient follow up, to return to the emergency department if symptoms worsen or persist or if there are any questions or concerns that arise at home. ED course: Discussed labs , PE findings with patient. Patient to follow up with PMD in 2-3 days. Patient understands/ agrees with plan. All questions answered. Return precautions given to include worsening symptoms, or any other concerns. Patient is improved, in NAD, non-toxic appearing, ambulatory in ED, speaking full sentences. . 09/18 07:01 Order name: COVID-19 SARS RT PCR (Document "Date of Onset" if Symptomatic); Complete bb Time: 09:13 09/18 07:01 Order name: Flu; Complete Time: 09:03 bb Administered Medications: No medications were administered Disposition Summary: 09/18/21 09:27 Discharge Ordered Location: Home ms3 Condition: Stable ms3 Diagnosis - SARS-associated coronavirus as the cause of diseases classified elsewhere ms3 - Fever, unspecified ms3 - Myalgia ms3 Followup: ms3 - With: Robe Romero DO - When: 2 - 3 days - Reason: Recheck today's complaints Discharge Instructions: - Discharge Summary Sheet ms3 - COVID-19 ms3 - 10 Things You Can Do to Manage Your COVID-19 Symptoms at Home - [facility] ms3 Forms: - Medication Reconciliation Form ms3 - Thank You Letter ms3 - Antibiotic Education ms3 - Prescription Opioid Use ms3 Prescriptions: - Ibuprofen 600 mg Oral Tablet - take 1 tablet by ORAL route every 6 hours As needed take with food; 30 tablet; ms3 Refills: 0, Product Selection Permitted Signatures: Dispatcher [employer] Phyllis Waller RN RN Lavon Velazquez DO DO ms3
--- NOTE | 2021-09-18 09:28 | ER ---
Nurse's Notes [facility] Name: Heather Schmitt Age: 41 yrs Sex: Female : 1980 Arrival Date: 09/18/2021 Time: 06:35 Bed 11 Private MD: Diagnosis: SARS-associated coronavirus as the cause of diseases classified elsewhere;Fever, unspecified;Myalgia Presentation: 09/18 06:55 Chief complaint: Patient states: she started having chills on Saturday which progressed bb to fever, headache, abdominal pain, diarrhea and back pain temp 102 earlier and she took Advil at 0400. Coronavirus screen: chills, fever, headache, muscle pain. Ebola Screen: No symptoms or risks identified at this time. Initial Sepsis Screen: Does the patient meet any 2 criteria? Temp <36.0*C (96.8*F)) or > 38.3*C (100.9*F). HR > 90 bpm. Yes Does the patient have a suspected source of infection? Yes: Productive cough/pneumonia. Risk Assessment: Do you want to hurt yourself or someone else? Patient reports no desire to harm self or others. Onset of symptoms was September 15, 2021. 06:55 Method Of Arrival: Ambulatory bb 06:55 Acuity: JORDYN 3 bb Triage Assessment: 06:58 General: Appears uncomfortable, Behavior is calm, cooperative. Pain: Complains of pain bb in headache Pain currently is 7 out of 10 on a pain scale. Neuro: Level of Consciousness is awake, alert, obeys commands, Oriented to person, place, time, situation. Cardiovascular: Capillary refill < 3 seconds Patient's skin is warm and dry. Respiratory: Respiratory effort is even, unlabored. GI: Abdomen is non-distended, Reports diarrhea. Derm: Skin is pink, warm \T\ dry. Musculoskeletal: Circulation, motion, and sensation intact. 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 - Social history:: Smoking status: Patient reports the use of cigarette tobacco products. Screenin:39 Abuse screen: Denies threats or abuse. Denies injuries from another. Nutritional ss screening: No deficits noted. Tuberculosis screening: Never had TB. Fall Risk None identified. Assessment: 09:12 Reassessment: Patient appears in no apparent distress at this time. results back. ss Awaiting disposition. Neuro: Level of Consciousness is awake, alert, Oriented to person, place, time, situation. Respiratory: Airway is patent Respiratory effort is even, unlabored, Respiratory pattern is regular, symmetrical. Derm: Skin is intact, is healthy with good turgor, Skin is dry, Skin is pink, warm \T\ dry. normal. Vital Signs: 06:55 BP 119 / 90; Pulse 94; Resp 18 S; Temp 98.3(O); Pulse Ox 98% on R/A; Weight 97.52 kg bb (R); Height 5 ft. 1 in. (154.94 cm) (R); Pain 7/10; 06:55 Body Mass Index 40.62 (97.52 kg, 154.94 cm) ED Course: 06:35 Patient arrived in ED. ja2 06:58 Triage completed. bb 06:58 Arm band placed on. bb 07:08 Lavon Wooten DO is Attending Physician. ms3 09:09 Leena Vaughn, ELLIE is Primary Nurse. ss 09:27 Robe Romero DO is Referral Physician. ms3 09:38 No provider procedures requiring assistance completed. Patient did not have IV access ss during this emergency room visit. 09:39 Patient has correct armband on for positive identification. ss Administered Medications: No medications were administered Outcome: 09:27 Discharge ordered by . ms3 09:38 Discharged to home ambulatory. ss 09:38 Condition: good 09:38 Discharge instructions given to patient, family, Instructed on discharge instructions, follow up and referral plans. medication usage, Demonstrated understanding of instructions, follow-up care, medications. 09:39 Patient left the ED. ss Signatures: Phyllis Adams RN RN bb Leena Vaughn RN RN Lavon Wooten DO DO ms3 Heather Floyd ja2
[2021-09-18 09:58] VITALS: BP 119/90; TEMP 98.3; O2SAT 98
== END 2021-09-18 09:39 | disposition home or self-care (01) ==
LOC: ER 06:31
DX: U07.1 COVID-19 (principal); M79.10 Myalgia, unspecified site; Z72.0 Tobacco use; Z88.6 Allergy status to analgesic agent; Z88.1 Allergy status to other antibiotic agents
CPT/HCPCS: 87804; 99281; U0003

== ENCOUNTER 2022-09-17 23:23 | Emergency (ER) | payer SELFPAY ==
--- OUTSIDE RECORDS SUMMARY | 2022-09-17 23:27 | XMS REPORT | Continuity of Care Document ---
:1980 Author Organization [facility] t Address [address] [address] [facility] [place]. [address] [place] [address] Care Team Providers Name Role Phone PCP, PATIENT DOES NOT HAVE A Primary Care Physician Unavaila ble Doctor Unassigned, [place] Attending Clinician Unavailable Frida Mata DO Attending Clinician FRIDA MATA Attending Clinician Unavailable OPAL ROBERTSON Admitting Clinician Unavailable Problems Condition Condition Condition Status Onset Resolution Last Treating Co mments Source Name Details Category Date Date Treatment Clinician Date No known No known Disease Unive rs active active ity of problems problems [facility] Allergies, Adverse Reactions, Alerts Allergy Allergy Status Severity Reaction(s) Onset Inactive Treating Comm ents Source Name Type Date Date Clinician Amoxicil Propensi Active Rash Univer s glenis ty to 3-05 ity of adverse 00:00: [place] reaction 00 Medical s Branch Aspirin Propensi Active Rash 2020-0 Univers ty to 3-05 ity of adverse 00:00: [place] reaction 00 Medical s Branch AMOXICIL DRUG Active Rash 2020-0 Univers GLENIS INGREDI 3-05 ity of 00:00: [place] 00 Medical [facility] ASPIRIN DRUG Active Rash 2020-0 Univers INGREDI 3-05 ity of 00:00: [place] 00 Medical [facility] Social History Social Habit Start Date Stop Date Quantity Comments Source Exposure to Not sure [facility] SARS-CoV-2 (event) Medica l Branch Sex Assigned At [birth year] [facility] [place] 00:00:00 00:00:00 Medical Branch Smoking Status Start Date Stop Date Source [facility] Medications Ordered Filled Start Stop Current Ordering Indication Dosage Frequency Signature Comments Components Source Medication Medication Date Date Medication? Clinician (SIG) Name Name FENTanyl PF No 50ug 50 mcg, Un shady (SUBLIMAZE 05-07- Slow IV ity o f (PF)) 04:15: 03:14 Push, [place] injection 00 :00 ONCE, 1 Medical 50 mcg dose, Fri Branch 05/06/20 at 2215, Routine maalox:diph No 15mL 15 mL, Uni vers enhydrAMINE 05-07 Oral, ity of :lidocaine 03:15: 03:14 ONCE, 1 [place] as 2 % viscous 00 :00 dose, Fri Med ical 1:1:1 05/06/20 at [facility] (FIRST-MOUT 2114, IRIS HWASH BLM) oral suspension 15 mL ondansetron No 4mg 4 mg, Slow Univers (ZOFRAN 05-07 IV Push, ity of (PF)) 03:00: 03:02 ONCE, 1 [place] injection 4 00 :00 dose, Fri Med ical mg 05/06/20 at Branch 2100, IRIS ketorolac 2020- No 30mg 30 mg, Unive rs (TORADOL) 05-07- Slow IV ity of injection 01:45: 01:51 Push, [place] 30 mg 00 :00 ONCE, 1 Medical dose, [facility] Branch 05/06/20 at 1945, IRIS
Fa culty member approving Restricted medication : FRIDA MATA sodium Yes 5mL 5 mL, Univers chloride 306 Intravenou ity o f (NS) 00:54: s, PRN, [place] injection 5 41 Starting Medi cody mL [facility] 05/06/20 Branch at 1854, Until Discontinu ed, Routine, IV line flushing No known No No known Unive rs medications 3-05 medication it y of 19:29: s [address] No known No Univers medications ity of [facility] Vital Signs Vital Name Observation Time Observation Value Comments Source Systolic blood 2020-05-07 05:00:00 135 mm[Hg] Univer sity of pressure [place] [facility] Diastolic blood 2020-05-07 05:00:00 76 mm[Hg] Unive rsity of pressure [place] [facility] Heart rate 2020-05-07 05:00:00 63 /min Universi ty of [facility] Respiratory rate 2020-05-07 05:00:00 20 /min Univ ersity of [facility] Branch Oxygen saturation in 2020-05-07 05:00:00 95 /min University of Arterial blood by [place] [employer] Pulse oximetry Branch Body temperature 2020-05-07 00:50:00 37 Lacy Univ ersity of [place] [facility] Body height 2020-05-07 00:48:00 157.5 cm Universi ty of [place] [facility] Body weight 2020-05-07 00:48:00 97.523 kg Universi ty of [place] [facility] BMI 2020-05-07 00:48:00 39.32 kg/m2 Universi ty of [place] [facility] Systolic blood 2020-05-07 05:00:00 135 mm[Hg] Univer sity of pressure [facility] Branch Diastolic blood 2020-05-07 05:00:00 76 mm[Hg] Unive rsity of pressure [facility] Branch Heart rate 2020-05-07 05:00:00 63 /min Universi ty of [place] [facility] Respiratory rate 2020-05-07 05:00:00 20 /min Univ ersity of [facility] Branch Oxygen saturation in 2020-05-07 05:00:00 95 /min University of Arterial blood by [place] [employer] Pulse oximetry Branch Body temperature 2020-05-07 00:50:00 37 Lacy Univ ersity [facility] [place] [facility] Body height 2020-05-07 00:48:00 157.5 cm Universi ty [facility] [place] [facility] Body weight 2020-05-07 00:48:00 97.523 kg [facility] [place] [facility] BMI 2020-05-07 00:48:00 39.32 kg/m2 [facility] [place] [facility] Procedures Procedure Date / Time Performing Clinician Source Performed REFERRAL- 2021-07-21 05:01:00 Doctor Unassigned, No [facility] [place] REQUEST/RESPONSE Name Medical Branch TROPONIN I 2020-05-07 03:04:00 Frida Mata [facility] XR CHEST 1 VW 2020-05-07 01:09:33 Singer [facility] NOTICE OF PRIVACY 2020-05-07 01:09:22 Doctor Unassigned, No Univ [facility] PRACTICES Name Medical Branch LIPASE 2020-05-07 00:57:00 [facility] [place] [facility] TROPONIN I 2020-05-07 00:57:00 Singer [facility] COMP. METABOLIC PANEL 2020-05-07 00:57:[id number] CBC WITH DIFF 2020-05-07 00:57:00 Robertson, [facility] PROTHROMBIN TIME / INR 2020-05-07 00:57:00 Robertson, [facility] ACTIVATED PARTIAL 2020-05-07 00:57:00 Singer [facility] THRMPLAS [facility] N-TERMINAL PRO-BNP 2020-05-07 00:57:00 Frida Mata [facility] CONSENT/REFUSAL FOR 2020-05-07 00:39:34 Doctor Unassigned, No [facility] DIAGNOSIS AND TREATMENT Name [facility] Encounters Start End Encounter Admission Attending Care Care Encounter Source Date/Time Date/Time Type Type Clinicians Facility Department ID 2022-07-14 2022-07-14 Outpatient [facility] [place] 14:20:50 14:20:50 [id number] [facility] 2022-07-12 2022-07-12 Outpatient [facility] [place] 14:06:26 14:06:26 [id number] [facility] 2022-05-02 2022-05-02 Outpatient [facility] [place] 17:36:14 17:36:14 [id number] [facility] 2021-07-21 2021-07-21 Orders Doctor [place] [id number] Univers 00:00:00 00:00:00 Only Unassigned, CARMEN [id number] ity of [place] [facility] [id number] Tommy as [id number] [address] 2020-05-06 2020-05-06 [facility] [id number] Univers 18:43:00 23:57:00 Frida Hernandez [id number] ity [facility] [id number] [facility] [id number] [facility] 084 Branch 2020-05-06 2020-05-06 Emergency [facility] E[facility] [id number] Univers 18:43:00 23:57:00 FRIDA [facility] 2020-05-06 2020-05-06 [facility] [id number] 18:43:00 23:57:00 Frida Hernandez [id number] [place] 4.2.7.2.686 [place] [id number] Results Test Description Test Time Test Comments Results Result Comments Source SARS-CoV-2 (COVID-19), RT-PCR/TMA 2021-03-24 14:21:21 Test Item Value Reference Range Interpretation Comme nts SARS-CoV-2 INTERPRETATION NEGATIVE SEE NOTE S ARS-CoV-2 RNA NOT (test code = 66243) DETECTED Negative results do not preclude SARS-C oV-2 infection and should notb e used as the sole basis for patient management deci sions. Negativeresults must be combined with c linical observations, p atient history,and epi demiological information. Op timum specimen types and timin gfor peak viral levels during i nfections caused by SARS-CoV-2 h ave notbeen determined. Col lection of multiple specim ens or types ofspecimens may be necessary to detect virus. I mproper specimencollect ion and handling, seque nce variability under primers/p robes,or organism presen t below the limit of detect ion may lead to falsenegative r esults. Positive and negative pr edictive values oftesting are h ighly dependent on prevalence. False negative testresults are more likely when prevalence is high. SOURCE (test code = 90565) NASOPHARYNGEAL Note: Methodology is Souleymane Wendi Real-Time RT-PCR. The expected result or reference range is NEGATI VE (Not Detected). For more information regarding COVID -19 testing to include clinica linformation, methodology det ail, intended use, FDA author ization andrecommended fact sheets for patients or a [facility] providers, see [employer] Announcement: S ARS-CoV-2 (COVID-19) by Maki MAYS at URL below (note,fact shee ts are provided by method given in report:https:// www.[employer]/ clinicians/deedee nt-communication s/ Alternativel y, see downloadable PD F fact sheet at:https://www. [employer]/COVI D-19-RT-PCR UNL ESS OTHERWISE INDICATED, ALL TESTING PERFORMED [facility], [facility]. [address] [place] [address] 4 DISTRIBUTION TECH: June DANIELS [id number] CAP ACCREDITATION N O. [id number] Troponin [id number] 03:35:00 Test Item Value Reference Range Interpretation Comments TROPONIN I (test 0.001 ng/mL See_Comment [Automated code = 9087146569) message] The system which generated this result [...] ? Lab Interpretation Normal (test code = 49233-4) [facility] [id number] 02:42:22 No acute cardiopulmonary abnormality. Preliminary Report Dictated by Resident: Flaca Bowden MD., have reviewed this study and agree with theabove report.XR CHEST 1 VW HISTORY:40 years-old; Female; cp COMPARISON: None TECHNIQUE: SINGLE VIEW CHEST RADIOGRAPH. FINDINGS: The lungs are well-expanded and clear with no focal consolidation. There isno pleural effusion or pneumothorax. The cardiac silhouette is within normal limits. There is no acute osseous abnormality. Multiple sternotomy wires are seen. [facility], Radiant Results Inft User - 05/06/2020 8:43 PM CSTXR CHEST 1 VWHISTORY: 40 years-old; Female; cp COMPARISON: NoneTECHNIQUE: SINGLE VIEW CHEST RADIOGRAPH.FINDINGS:The lungs are well-expanded and clear with no focal consolidation. There isno pleural effusion or pneumothorax.The cardiac silhouette is within normal limits.There is no acute osseous abnormality. Multiple sternotomy wires are seen.IMPRESSIONNo acute cardiopulmonary abnormality.Preliminary Report Dictated by Resident: Young Madrigal, Flaca Curry MD., have reviewed this study and agree with theabove report.[facility] [id number] 02:00:00 Test Item Value Reference Range Interpretation Comments NT-proBNP (test code 126 pg/mL See_Comment H [Autom ated = 6709335427) message] The system which generated this result transmitted reference range : <=125. The reference range was not used to interpret this result as normal/abnormal . AMADOU (test code = AMADOU) Biotin has been reported to cause a negative bias, interpret results relative to patient's use of biotin. Lab Interpretation Abnormal (test code = 40978-1) [facility] [id number] 01:53:00 Test Item Value Reference Range Interpretation Comments TROPONIN I (test 0.002 ng/mL See_Comment [Automated code = 5336921902) message] The system which generated this result [...] ? Lab Interpretation Normal (test code = 74820-7) [place] [facility]. METABOLIC PANEL (84587)2020-05-07 01:43:00 Test Item Value Reference Range Interpretation Comments NA (test code = 140 mmol/L 135-145 6028341734) K (test code = 3.8 mmol/L 3.5-5 0864050987) CL (test code = 104 mmol/L 98-108 5329880117) CO2 TOTAL (test code = 29 mmol/L 23-31 9498728507) AGAP (test code = 2-16 8401100152) BUN (test code = 15 mg/dL 7-23 9655715528) GLUCOSE (test code = 85 mg/dL 70-110 0118237956) CREATININE (test code = 0.69 mg/dL 0.5-1.04 4785919272) TOTAL BILI (test code = 0.5 mg/dL 0.1-1.1 3048916048) CALCIUM (test code = 10.0 mg/dL 8.6-10.6 9589982422) T PROTEIN (test code = 7.6 g/dL 6.3-8.2 7173739734) ALBUMIN (test code = 4.4 g/dL 3.5-5 7763979013) ALK PHOS (test code = 126 U/L 34-122 H 3274402499) ALTv (test code = 21 U/L 5-35 1742-6) AST(SGOT) (test code = 25 U/L 13-40 1433636795) eGFR Calculation mL/min/1.73m2 (Non-) (test code = 9852060444) eGFR Calculation mL/min/1.73m2 () (test code = 8620085561) AMADOU (test code = AMADOU) Association of [...] tests). Lab Interpretation Abnormal (test code = 16422-2) [facility], [id number] 01:42:00 Test Item Value Reference Range Interpretation Comments LIPASE (test code = 5437818776) 72 U/L 0-220 Lab Interpretation (test code = Normal 88848-5) [facility]TT2021-[facility]-06 01:39:00 Test Item Value Reference Range Interpretation Comments APTT Patient (test See_Comment [Automat ed code = 3173-2) message] The system which generated this result transmitted reference range : 23 - 38 Seconds . The reference range was not used to interpr et this result as normal/abnormal . AMADOU (test code = AMADOU) The [facility] patient population mean normal value for aPTT is 30 seconds. Lab Interpretation Normal (test code = 61134-9) [facility] CenterPROTHROMBIN TIME / [id number] 01:36:00 Test Item Value Reference Range Interpretation [...] tions. Lab Interpretation (test Normal code = 06161-0) [facility] WITH [id number] 01:32:00 Test Item Value Reference Range Interpretation Comments WBC (test code = See_Comment H [Automated 0890-2) message] The sy stem which generated this result transmitted reference range : 4.30 - 11.10 10*3/?L. The reference range was not used to interpret this result as normal/abnormal . RBC (test code = See_Comment [Automated 299-8) message] The sy stem which generated this [...] RDW-SD (test code = 42.9 fL 39-49.9 28669-5) RDW-CV (test code = 13.1 % 12-15.5 788-0) PLT (test code = See_Comment H [Automated 777-3) message] The sy stem which generated this result transmitted reference range : 166 - 358 10*3/ ?L. The reference r dagoberto was not used to interpret this result as normal/abnormal . MPV (test code = 11.1 fL 9.5-12.9 58723-6) NRBC/100 WBC (test See_Comment [Automat ed code = 6994348187) message] The system which generated this result transmitted reference range : 0.0 - 10.0 /100 WBCs. The refer ence range was not u sed to interpret th is result as normal/abnormal . NRBC x10^3 (test code <0.01 See_Comment [Auto mated = 5477080020) message] The s ystem which generated this result transmitted reference range : 10*3/?L. The reference range was not used to interpret this result as normal/abnormal . GRAN MAT (NEUT) % 58.0 % (test code = 770-8) IMM GRAN % (test code 0.50 % = 1808658864) LYMPH % (test code = 32.3 % 736-9) MONO % (test code = 6.7 % 5905-5) EOS % (test code = 1.6 % 713-8) BASO % (test code = 0.9 % 706-2) GRAN MAT x10^3(ANC) 6.47 10*3/uL 1.88-7.09 (test code = 7903484171) IMM GRAN x10^3 (test 0.06 10*3/uL 0-0.06 code = 9722456296) LYMPH x10^3 (test code 3.61 10*3/uL 1.32-3.29 H = 731-0) MONO x10^3 (test code 0.75 10*3/uL 0.33-0.92 = 742-7) EOS x10^3 (test code = 0.18 10*3/uL 0.03-0.39 711-2) BASO x10^3 (test code 0.10 10*3/uL 0.01-0.07 H = 704-7) Lab Interpretation Abnormal (test code = 05302-8) [facility]"
[2022-09-18] MEDS ORDERED: ONDANSETRON 4 MG (ODT) TAB ONE (00:02)
[2022-09-18] MEDS ORDERED: ACETAMINOPHEN 500 MG TAB ONE (00:02)
--- NOTE | 2022-09-18 01:42 | ER ---
Nurse's Notes [facility] Name: Heather Schmitt Age: 42 yrs Sex: Female : 1980 Arrival Date: 09/17/2022 Time: 23:23 Bed 19 Private MD: Diagnosis: Fall on same level, unspecified;Pain in left wrist;Pain in left upper arm;Contusion of left lower leg;Low back pain;Dizziness and giddiness;Nausea with vomiting, unspecified Presentation: 09/17 23:37 Chief complaint: Patient states: "I slipped on something on the floor at [facility] today as6 and I felt pretty hard. the whole left side of my body hurts. I don't remember hitting my head but I have been dizzy, really nauseous and vomited a few times". Coronavirus screen: At this time, the client does not indicate any symptoms associated with coronavirus-19. Ebola Screen: No symptoms or risks identified at this time. Initial Sepsis Screen: Does the patient meet any 2 criteria? No. Patient's initial sepsis screen is negative. Does the patient have a suspected source of infection? No. Patient's initial sepsis screen is negative. Risk Assessment: Do you want to hurt yourself or someone else? Patient reports no desire to harm self or others. Onset of symptoms was September 17, 2022. 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 - Social history:: Smoking status: Patient reports the use of cigarette tobacco products, smokes one-half pack cigarettes per day. Screenin:44 [facility] ED Fall Risk Assessment (Adult) History of falling in the last 3 months, rv including since admission Yes- single mechanical fall (1 pt) Confusion or Disorientation No (0 pts) Intoxicated or Sedated No (0 pts) Impaired Gait No (0 pts) Mobility Assist Device Used No (0 pt) Altered Elimination No (0 pt) Score/Fall Risk Level 0 - 2 = Low Risk Oriented to surroundings, Maintained a safe environment, Educated pt \\T\\ family on fall prevention, incl call for assistance when getting out of bed, Assessed \\T\\ reinforced patient's understanding of fall precautions, Provided non-skid footwear, Hourly rounding (assess needs \\T\\ fall precautionary measures) done, Used ambulatory aids as needed (educated on \\T\\ assisted with), Used gait belt as appropriate. Abuse screen: Denies threats or abuse. Denies injuries from another. Nutritional screening: No deficits noted. Tuberculosis screening: No symptoms or risk factors identified. Assessment: 23:42 General: Appears uncomfortable, Behavior is calm, cooperative. Pain: Complains of pain rv in left arm. Pain: Complains of pain in left wrist. Neuro: Level of Consciousness is awake, alert, obeys commands, Oriented to person, place, time, situation, Reports dizziness, since 1600. Cardiovascular: Capillary refill < 3 seconds. Respiratory: Airway is patent Respiratory effort is even, unlabored. Derm: Skin is intact. Musculoskeletal: Range of motion: intact in all extremities, Swelling absent Reports pain in left arm. Vital Signs: 23:37 BP 148 / 96; Pulse 74; Resp 18 S; Temp 97.8(O); Pulse Ox 99% on R/A; Weight 95.25 kg as6 (R); Height 5 ft. 2 in. (R); Pain 4/10; 09/18 01:57 BP 136 / 86; Pulse 75; Resp 15; Temp 98; Pulse Ox 99% ; rv 09/17 23:37 Body Mass Index 38.41 (95.25 kg, 157.48 cm) as6 09/17 23:37 Pain Scale: Adult as6 Lien Coma Score: 01:57 Eye Response: spontaneous(4). Motor Response: obeys commands(6). Verbal Response: rv oriented(5). Total: 15. ED Course: 09/17 23:27 Patient arrived in ED. ag3 23:31 Mk Chavez PA is PHCP. cp 23:31 Adriana Romero MD is Attending Physician. cp 23:38 Kin Moody RN is Primary Nurse. rv 23:39 Triage completed. as6 23:40 Arm band placed on. as6 23:44 Patient has correct armband on for positive identification. Bed in low position. Call rv light in reach. Side rails up X 1. 23:44 No provider procedures requiring assistance completed. rv 18 00:14 XRAY Humerus LEFT In Process Unspecified. EDMS 00:14 XRAY Wrist LEFT 3 view In Process Unspecified. EDMS 00:14 XRAY Tib Fib LEFT In Process Unspecified. EDMS 00:37 CT Chest Abdomen Pelvis W/O Contrast In Process Unspecified. EDMS 00:53 CT Head C Spine In Process Unspecified. EDMS 01:57 Patient did not have IV access during this emergency room visit. rv 01:58 Provided Education on: SLING. rv Administered Medications: 09/17 23:54 Drug: Ondansetron PO 4 mg Route: PO; rv 09/18 01:57 Follow up: Response: No adverse reaction; Marked relief of symptoms rv 09/17 23:54 Drug: Acetaminophen PO 1000 mg Route: PO; rv 09/18 01:57 Follow up: Response: No adverse reaction; Marked relief of symptoms rv Medication: 09/17 23:44 VIS not applicable for this client. rv Outcome: 09/18 01:42 Discharge ordered by . cp 01:57 Discharged to home ambulatory. rv 01:57 Condition: good 01:57 Discharge instructions given to patient, Instructed on discharge instructions, follow up and referral plans. medication usage, Demonstrated understanding of instructions, follow-up care, medications, Prescriptions given X 2. 01:58 Patient left the ED. rv Signatures: Dispatcher [employer] EDID Mk Chavez PA PA cp Vicente, Ronaldo, RN RN Joycelyn Anthony Ashby, RN RN as6
--- NOTE | 2022-09-18 01:42 | EDPHYS ---
Physician Documentation [facility] Name: Heather Schmitt Age: 42 yrs Sex: Female : 1980 Arrival Date: 09/17/2022 Time: 23:23 Bed 19 Private MD: ED Physician Adriana Romero HPI: 09/18 00:00 This 42 yrs old Female presents to ER via Ambulatory with complaints of Hip Pain, Leg cp Pain, Fall Injury. 00:00 The patient or guardian reports pain. cp 00:00 slip and fall at local grocery store. Onset: The symptoms/episode began/occurred today. cp Details of fall: The patient fell from an upright position, while walking. Patient is a 42-year-old female who presents to the emergency department with complaints of left side pain. Patient reports a slip and fall at a local grocery store in which she landed on her left side. Patient complains of pain to her left upper arm, left wrist, left hip area and lower back. Patient does not believe she hit her head and denies any headache but complains of dizziness and has had some nausea and vomiting. 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 - Social history:: Smoking status: Patient reports the use of cigarette tobacco products, smokes one-half pack cigarettes per day. ROS: 09/18 00:05 Constitutional: Negative for body aches, chills, fever, poor PO intake. cp 00:05 Eyes: Negative for injury, pain, redness, and discharge. cp 00:05 ENT: Negative for drainage from ear(s), ear pain, sore throat, difficulty swallowing, difficulty handling secretions. 00:05 Neck: Negative for pain with movement, pain at rest, stiffness. 00:05 Cardiovascular: Negative for chest pain, palpitations. 00:05 Respiratory: Negative for cough, shortness of breath, wheezing. 00:05 Abdomen/GI: Positive for nausea, vomiting, Negative for abdominal pain, diarrhea, constipation, hematemesis. 00:05 Back: Positive for pain at rest, pain with movement. 00:05 MS/extremity: Positive for pain, of the left upper arm and left wrist and left lower leg, Negative for decreased range of motion, deformity, paresthesias. 00:05 Neuro: Positive for dizziness, Negative for altered mental status, headache, loss of consciousness, syncope, weakness. 00:05 All other systems are negative. Exam: 00:10 Constitutional: The patient appears in no acute distress, alert, awake, cp non-diaphoretic, non-toxic, well developed, well nourished, overweight 00:10 Head/Face: Normocephalic, atraumatic. cp 00:10 Eyes: Periorbital structures: appear normal, Pupils: equal, round, and reactive to light and accomodation, Extraocular movements: intact throughout, Conjunctiva: normal, no exudate, no injection, Lids and lashes: appear normal, bilaterally. 00:10 ENT: External ear(s): are unremarkable, Nose: is normal, Mouth: Lips: moist, Oral mucosa: moist, Posterior pharynx: is normal, airway is patent, no erythema, no exudate. 00:10 Neck: C-spine: vertebral tenderness, is not appreciated, crepitus, is not appreciated, ROM/movement: is normal, is supple, without pain, no range of motions limitations. 00:10 Chest/axilla: Inspection: normal, Palpation: is normal, no crepitus, no tenderness. 00:10 Cardiovascular: Rate: normal, Rhythm: regular. 00:10 Respiratory: the patient does not display signs of respiratory distress, Respirations: normal, no use of accessory muscles, no retractions, labored breathing, is not present, Breath sounds: are clear throughout, no decreased breath sounds, no stridor, no wheezing. 00:10 Abdomen/GI: Inspection: abdomen appears normal, Palpation: abdomen is soft and non-tender, in all quadrants. 00:10 Back: pain, that is moderate, of the lumbar area, ROM is normal. 00:10 Musculoskeletal/extremity: Extremities: noted in the left wrist: pain, tenderness, There is no evidence of decreased ROM, deformity, noted in the left upper arm: pain, tenderness, no evidence of decreased ROM, deformity, ROM: full active range of motion, in the left wrist and left shoulder and left elbow, Pulses: noted to be 2+ in the left radial artery, the left hand and left arm Sensation intact. 00:10 Neuro: Orientation: to person, place \T\ time. Mentation: is normal, Motor: moves all fours, strength is normal. Vital Signs: 09/17 23:37 BP 148 / 96; Pulse 74; Resp 18 S; Temp 97.8(O); Pulse Ox 99% on R/A; Weight 95.25 kg as6 (R); Height 5 ft. 2 in. (R); Pain 4/10; 09/18 01:57 BP 136 / 86; Pulse 75; Resp 15; Temp 98; Pulse Ox 99% ; rv 09/17 23:37 Body Mass Index 38.41 (95.25 kg, 157.48 cm) as6 09/17 23:37 Pain Scale: Adult as6 [place] Coma Score: 01:57 Eye Response: spontaneous(4). Motor Response: obeys commands(6). Verbal Response: rv oriented(5). Total: 15. MDM: 09/17 23:34 Patient medically screened. cp 09/18 00:00 Differential diagnosis: hip fracture, intertrochanteric fracture, femoral neck cp fracture, femoral shaft fracture, spinal fracture. 01:40 Data reviewed: vital signs, nurses notes, radiologic studies, CT scan, plain films. cp 01:40 I considered the following discharge prescriptions or medication management in the emergency department Medications were administered in the Emergency Department. See MAR. Counseling: I had a detailed discussion with the patient and/or guardian regarding: the historical points, exam findings, and any diagnostic results supporting the discharge/admit diagnosis, radiology results, the need for outpatient follow up, a family practitioner, to return to the emergency department if symptoms worsen or persist or if there are any questions or concerns that arise at home. 09/17 23:51 Order name: XRAY Humerus LEFT cp 09/17 23:51 Order name: XRAY Wrist LEFT 3 view cp 09/17 23:51 Order name: XRAY Tib Fib LEFT cp 09/17 23:51 Order name: CT Chest Abdomen Pelvis W/O Contrast cp 09/18 00:42 Order name: CT Head C Spine cp 09/18 01:39 Order name: Sling; Complete Time: 01:49 cp 09/18 01:39 Order name: Wrist Splint; Complete Time: 01:49 cp Administered Medications: 09/17 23:54 Drug: Ondansetron PO 4 mg Route: PO; rv 09/18 01:57 Follow up: Response: No adverse reaction; Marked relief of symptoms rv 09/17 23:54 Drug: Acetaminophen PO 1000 mg Route: PO; rv 09/18 01:57 Follow up: Response: No adverse reaction; Marked relief of symptoms rv Disposition Summary: 09/18/22 01:42 Discharge Ordered Location: Home cp Problem: new cp Symptoms: have improved cp Condition: Stable cp Diagnosis - Fall on same level, unspecified cp - Pain in left wrist cp - Pain in left upper arm cp - Contusion of left lower leg cp - Low back pain cp - Dizziness and giddiness cp - Nausea with vomiting, unspecified cp Followup: cp - With: Private Physician - When: 2 - 3 days - Reason: Recheck today's complaints Discharge Instructions: - Discharge Summary Sheet cp - Acute Back Pain, Adult cp - Contusion cp - Dizziness cp - Nausea and Vomiting, Adult cp - Wrist Pain, Adult cp - Heat Therapy cp - Back Exercises cp Forms: - Medication Reconciliation Form cp - Thank You Letter cp - Antibiotic Education cp - Prescription Opioid Use cp - Patient Portal Instructions cp Prescriptions: - Zofran 4 mg Oral Tablet - take 1 tablet by ORAL route every 12 hours As needed; 20 tablet; Refills: 0, cp Product Selection Permitted - Cyclobenzaprine 10 mg Oral Tablet - take 1 tablet by ORAL route every 8 hours As needed; 30 tablet; Refills: 0, cp Product Selection Permitted Signatures: Dispatcher [employer] Armstrong PA PA cp Kin Moody, RN RN rv Phil Lundberg, RN RN as6
[2022-09-18 03:40] VITALS: O2SAT 99
[2022-09-18 03:42] VITALS: BP 136/86; TEMP 98
--- NOTE | 2022-09-18 11:23 | RAD REPORT ---
EXAM DESCRIPTION: RAD - Tib Fib Left - 09/18/2022 12:12 am CLINICAL HISTORY: 42 years Female fall; Pain TECHNIQUE: 2 views of the left lower leg are provided. COMPARISON: No prior exams provided for comparison. FINDINGS: There is no acute left lower leg fracture or foreign body. Visualized joint spaces are pre served. No aggressive osseous lesion. IMPRESSION: No acute findings in the left tibia/fibula. Electronically signed by: Marisol Knapp MD 09/18/2022 12:32 AM CDT Due to temporary technical issues with the PACS/Fluency reporting system, reports are being signed by the in house radiologists without review as a courtesy to insure prompt reporting. The interpreting radiologist is fully responsible for the content of the report.
--- NOTE | 2022-09-18 11:37 | RAD REPORT ---
EXAM DESCRIPTION: RAD - Wrist Left 3 View - 09/18/2022 12:12 am CLINICAL HISTORY: 42 years Female fall;Pain TECHNIQUE: 3 views of the left wrist COMPARISON: No prior exams provided for comparison. FINDINGS: There is no acute left wrist fracture or dislocation. Carpal alignment is maintained. Visu alized joint spaces are normal. No aggressive osseous lesions. IMPRESSION: No acute findings in the left wrist. Electronically signed by: Marisol Knapp MD 09/18/2022 12:28 AM CDT Due to temporary technical issues with the PACS/Fluency reporting system, reports are being signed by the in house radiologists without review as a courtesy to insure prompt reporting. The interpreting radiologist is fully responsible for the content of the report.
--- NOTE | 2022-09-18 11:47 | RAD REPORT ---
EXAM DESCRIPTION: RAD - Humerus Left - 09/18/2022 12:12 am CLINICAL HISTORY: 42 years Female fall; Pain TECHNIQUE: 2 views of the left humerus are provided. COMPARISON: No prior exams provided for comparison. FINDINGS: There is no acute left humeral fracture, dislocation, or foreign body. Visualized joint sp aces are preserved. No aggressive osseous lesion. IMPRESSION: No acute findings in the left humerus. Electronically signed by: Marisol Knapp MD 09/18/2022 12:26 AM CDT Due to temporary technical issues with the PACS/Fluency reporting system, reports are being signed by the in house radiologists without review as a courtesy to insure prompt reporting. The interpreting radiologist is fully responsible for the content of the report.
--- NOTE | 2022-09-18 11:48 | RAD REPORT ---
EXAM DESCRIPTION: CT - Chest Abd Pelvis Wo Con - 09/18/2022 1:03 am CLINICAL HISTORY: The patient is 42 years old and is Female; fall, back pain TECHNIQUE: Axial computed tomography images of the chest, abdomen and pelvis without intravenous con trast. Sagittal and coronal reformatted images were created and reviewed. This CT exam was perfor med using one or more of the following dose reduction techniques: automated exposure control, adjus tment of the mA and/or kV according to patient size, and/or use of iterative reconstruction technique . DLP: 1590 mGy*cm COMPARISON: CT chest, abdomen and pelvis dated 12/29/2020. FINDINGS: CHEST: LUNGS: Unremarkable. No mass. No consolidation. PLEURAL SPACE: Unremarkable. No significant effusion. No pneumothorax. HEART: Unremarkable. No cardiomegaly. No significant pericardial effusion. No significant cor onary artery calcifications. MEDIASTINUM: Small hiatal hernia. ABDOMEN: LIVER: Unremarkable. GALLBLADDER AND BILE DUCTS: Prior cholecystectomy. No ductal dilation. PANCREAS: Unremarkable. No ductal dilation. SPLEEN: Unremarkable. No splenomegaly. ADRENALS: Unremarkable. No mass. KIDNEYS AND URETERS: Unremarkable. No obstructing stones. No hydronephrosis. STOMACH AND BOWEL: Unremarkable. No obstruction. No mucosal thickening. PELVIS: APPENDIX: The appendix is seen and is within normal limits. BLADDER: Bladder is decompressed. No stones. REPRODUCTIVE: Prior hysterectomy. CHEST, ABDOMEN and PELVIS: INTRAPERITONEAL SPACE: Unremarkable. No significant fluid collection. No free air. BONES/JOINTS: Prior median sternotomy. No acute fracture. No dislocation. SOFT TISSUES: Unremarkable. VASCULATURE: Unremarkable. No aortic aneurysm. LYMPH NODES: Unremarkable. No enlarged lymph nodes. IMPRESSION: 1. No acute intrathoracic, abdominal or pelvic abnormality. 2. Small hiatal hernia. Electronically signed by: Randy Fairbanks DO 09/18/2022 12:56 AM CDT Due to temporary technical issues with the PACS/Fluency reporting system, reports are being signed by the in house radiologists without review as a courtesy to insure prompt reporting. The interpreting radiologist is fully responsible for the content of the report.
--- NOTE | 2022-09-18 11:49 | RAD REPORT ---
EXAM DESCRIPTION: CT - Head C Spine Mpr Wo Con - 09/18/2022 1:54 am CLINICAL HISTORY: CLINICAL HISTORY: 42 years, Female, DIZZINESS COMPARISON: None FINDINGS: Multiple transaxial tomograms of the brain were obtained from the base of the skull to the vertex without contrast. 2-D multiplanar reformats and the coronal and sagittal plane were performed and reviewed. Subsequently multiple axial CT images through the cervical spine were obtained at 2 mm slice thicknes s at 2 mm interval reconstruction. In addition 2-D multiplanar reformats and the sagittal coronal gustavo ne were performed and reviewed. This exam was performed according to our departmental dose-optimization protocol, which includes auto mated exposure control, adjustment of the mA and/or kV according to patient size and/or use of iterat asim reconstruction technique. CT head: Brain parenchyma as well as the white and white matter differentiation demonstrate to be unre markable. There is no midline shift and/or mass effect. There is no evidence for acute hemorrhage. Th ere are no focal areas of hypodensities. Lateral ventricles and cisterns displace normal appearance. No intra or extra axial fluid collections were seen. The calvarium is intact with no evidence for f racture. The visualized portions of the paranasal sinuses and orbits demonstrate to be clear. CT C-spine: The alignment of the vertebral bodies are normal. There is no evidence of fracture or s ubluxation. There is minimal degenerative disc disease at C5/C6. The spinal canal demonstrate no evid ence for significant stenosis. Neural foramina demonstrate to be unremarkable. The uncovertebral join ts demonstrate to be normal. There is no prevertebral soft tissue swelling. Sagittal coronal reform atted images demonstrate no subluxation or bony abnormalities. IMPRESSION: No evidence for acute intracranial hemorrhage. Minimal degenerative disc disease at C5/C6. Electronically signed by: Danny Bullock MD 09/18/2022 1:07 AM CDT Due to temporary technical issues with the PACS/Fluency reporting system, reports are being signed by the in house radiologists without review as a courtesy to insure prompt reporting. The interpreting radiologist is fully responsible for the content of the report.
== END 2022-09-18 01:58 | disposition home or self-care (01) ==
LOC: ER 23:23
DX: S80.12XA Contusion of left lower leg, initial encounter (principal); M25.532 Pain in left wrist; M79.622 Pain in left upper arm; M54.50 Low back pain, unspecified; R42 Dizziness and giddiness; R11.2 Nausea with vomiting, unspecified; W18.30XA Fall on same level, unspecified, initial encounter
CPT/HCPCS: 70450; 71250; 72125; 74176; 99284

== ENCOUNTER 2022-09-19 16:45 | Emergency (ER) | payer SELFPAY ==
--- OUTSIDE RECORDS SUMMARY | 2022-09-19 16:49 | XMS REPORT | Continuity of Care Document ---
:1980 Author Organization [facility] t Address [address] [place] [address] Care Team Providers Name Role Phone PCP, PATIENT DOES NOT HAVE A Primary Care Physician Unavaila ble Doctor Unassigned, [place] Attending Clinician Unavailable Frida Mata DO Attending Clinician FRIDA MATA Attending Clinician Unavailable OPAL ROBERTSON Admitting Clinician Unavailable Problems Condition Condition Condition Status Onset Resolution Last Treating Co mments Source Name Details Category Date Date Treatment Clinician Date No known No known Disease Unive rs active active ity of problems problems [facility] Allergies, Adverse Reactions, Alerts Allergy Allergy Status [...] 3-05 ity of 00:00: [place] 00 Medical [place] ASPIRIN DRUG Active Rash 2020-0 Univers INGREDI 3-05 ity of 00:00: [place] 00 [facility] Social History Social Habit Start Date Stop Date Quantity Comments Source Exposure to Not sure [facility] SARS-CoV-2 (event) Medica l Branch Sex Assigned At [birth year] [facility] [place] 00:00:00 00:00:00 Medical Branch Smoking Status Start Date Stop Date Source Tobacco smoking consumption [facility] Medications Ordered Filled Start Stop Current Ordering Indication Dosage Frequency Signature Comments Components Source Medication Medication Date Date Medication? Clinician (SIG) Name Name FENTanyl PF No 50ug 50 mcg, Un shady (SUBLIMAZE 05-07 Slow IV ity o f (PF)) 04:15: 03:14 Push, [place] injection 00 :00 ONCE, 1 Medical 50 mcg dose, Fri Branch 05/06/20 at 2215, Routine maalox:diph No 15mL 15 mL, Uni vers enhydrAMINE 05-07 Oral, ity of :lidocaine 03:15: 03:14 ONCE, 1 Tommy as 2 % viscous 00 :00 dose, Fri Med ical 1:1:1 05/06/20 at [place] (FIRST-MOUT 2114, IRIS HWASH BLM) oral suspension 15 mL ondansetron No 4mg 4 mg, Slow Univers (ZOFRAN 05-07 IV Push, ity of (PF)) 03:00: 03:02 ONCE, 1 [place] injection 4 00 :00 dose, Fri Med ical mg 05/06/20 at Branch 2100, IRIS ketorolac No 30mg 30 mg, Unive rs (TORADOL) 05-07 Slow IV ity of injection 01:45: 01:51 Push, [place] 30 mg 00 :00 ONCE, 1 Medical dose, [facility] 05/06/20 at 1945, IRIS
Fa culty member approving Restricted medication : FRIDA MATA sodium Yes 5mL 5 mL, Univers chloride 06 Intravenou ity o f (NS) 00:54: s, PRN, [place] injection 5 41 Starting Medi cody mL [facility] [place] [facility] 05/06/20 [place] at 1854, Until Discontinu ed, Routine, IV line flushing No known No No known Unive rs medications 3-05 medication it y of 19:29: s [address] No known No Univers medications ity of [facility] Vital Signs Vital Name Observation Time Observation Value Comments Source Systolic blood 2020-05-07 05:00:00 135 mm[Hg] Univer sity of pressure [place] [facility] Diastolic blood 2020-05-07 05:00:00 76 mm[Hg] Unive rsity of pressure [facility] Heart rate 2020-05-07 05:00:00 63 /min Universi ty of [facility] Respiratory rate 2020-05-07 05:00:00 20 /min Univ ersity of [facility] Oxygen saturation in 2020-05-07 05:00:00 95 /min University of Arterial blood by [place] Dahu cody Pulse oximetry Branch Body temperature 2020-05-07 00:50:00 37 Lacy Univ ersity of [facility] Body height 2020-05-07 00:48:00 157.5 cm Universi ty of [place] [facility] [place] Body weight 2020-05-07 00:48:00 97.523 kg Universi ty of [facility] BMI 2020-05-07 00:48:00 39.32 kg/m2 Universi ty of [facility] Systolic blood 2020-05-07 05:00:00 135 mm[Hg] Univer sity of pressure [facility] Branch Diastolic blood 2020-05-07 05:00:00 76 mm[Hg] Unive rsity of pressure [facility] Heart rate 2020-05-07 05:00:00 63 /min Universi ty of [facility] Branch Respiratory rate 2020-05-07 05:00:00 20 /min Univ ersity of [facility] Oxygen saturation in 2020-05-07 05:00:00 95 /min University of Arterial blood by [place] Dahu cody Pulse oximetry Branch Body temperature 2020-05-07 00:50:00 37 Lacy Univ ersity of [place] [facility] Body height 2020-05-07 00:48:00 157.5 cm [facility] [place] [facility] Body weight 2020-05-07 00:48:00 97.523 kg [facility] [place] [facility] BMI 2020-05-07 00:48:00 39.32 kg/m2 [facility] [place] [facility] Procedures Procedure Date / Time Performing Clinician Source Performed REFERRAL- 2021-07-21 05:01:00 Doctor Unassigned, No [facility] REQUEST/RESPONSE Name Medical Branch TROPONIN I 2020-05-07 03:04:00 Frida Mata [facility] XR CHEST 1 VW 2020-05-07 01:09:33 [facility] NOTICE OF PRIVACY 2020-05-07 01:09:22 Doctor Unassigned, No Univ [facility] PRACTICES Name Medical Branch LIPASE 2020-05-07 00:57:00 Robertson, [facility] TROPONIN I 2020-05-07 00:57:00 Singer [facility] COMP. METABOLIC PANEL 2020-05-07 00:57:00 [facility] ([id number]) [facility] CBC WITH DIFF 2020-05-07 00:57:00 [facility] PROTHROMBIN TIME / INR 2020-05-07 00:57[facility] 2020-05-07 00:57[facility] N-TERMINAL PRO-BNP 2020-05-07 00:57:[address] [facility] CONSENT/REFUSAL FOR 2020-05-07 00:39:34 Doctor Unassigned, No [facility] DIAGNOSIS AND TREATMENT [facility] Encounters Start End Encounter Admission Attending Care Care Encounter Source Date/Time Date/Time Type Type Clinicians Facility Department ID 2022-07-14 2022-07-14 Outpatient [facility] [place] 14:20:50 14:20:50 [id number] [facility] 2022-07-12 2022-07-12 Outpatient [facility] [place] 14:06:26 14:06:26 [id number] [facility] 2022-05-02 2022-05-02 Outpatient [facility] [place] 17:36:14 17:36:14 [id number] [facility] 2021-07-21 2021-07-21 Orders Doctor BRADFORD [id number] Univers 00:00:00 00:00:00 Only Unassigned, CARMEN [id number] ity of [place] [facility] [id number] Tommy as [id number] Medi cody 009 Branch 2020-05-06 2020-05-06 Emergency [facility] [id number] Univers 18:43:00 23:57:00 Frida Hernandez [id number] ity [facility] [id number] [facility] [id number] [facility] 084 Branch 2020-05-06 2020-05-06 Emergency [facility] ERT [id number] Univers 18:43:00 23:57:00 [facility] 2020-05-06 2020-05-06 Emergency [facility] [id number] 18:43:00 23:57:00 Frida Hernandez [id number] [place] [id number] [place] [id number] Results Test Description Test Time Test Comments Results Result Comments Source SARS-CoV-2 (COVID-19), RT-PCR/TMA 2021-03-24 14:21:21 Test Item Value Reference Range Interpretation Comme nts SARS-CoV-2 INTERPRETATION NEGATIVE SEE NOTE S ARS-CoV-2 RNA NOT (test code = 63333) DETECTED Negative results do not preclude SARS-C [...] prevalence is high. SOURCE (test code = 15902) NASOPHARYNGEAL Note: Methodology is Souleymane Wendi Real-Time RT-PCR. The expected result or reference range is NEGATI VE (Not Detected). For more information regarding COVID -19 testing to include clinica linformation, methodology det ail, intended use, FDA author ization andrecommended fact sheets for patients or hea ltare providers, see The [facility] Announcement: S ARS-CoV-2 (COVID-19) by Maki MAYS at URL below (note,fact shee ts are provided by method given in report:https:// www.Vinobo/ clinicians/deedee nt-communication s/ Alternativel y, see downloadable PD F fact sheet at:https://www. Vinobo/COVI D-19-RT-PCR UNL ESS OTHERWISE INDICATED, ALL TESTING PERFORMED [facility], [facility]. [address] [place] [address] 4 INTERNATIONAL PROJECT ENGINEER: June DANIELS [id number] CAP ACCREDITATION N O. [id number] Troponin [id number] 03:35:00 Test Item Value Reference Range Interpretation Comments TROPONIN I (test 0.001 ng/mL See_Comment [Automated code = 5189594153) message] The system which generated this result [...] ? Lab Interpretation Normal (test code = 74120-4) [facility] [id number] 02:42:22 No acute cardiopulmonary abnormality. Preliminary Report [...] osseous abnormality. Multiple sternotomy wires are seen. [facility], Radiant Results Inft User - 05/06/2020 8:43 [...] reviewed this study and agree with theabove report.[facility]AL [id number] 02:00:00 Test Item Value Reference Range Interpretation Comments NT-proBNP (test code 126 pg/mL See_Comment H [Autom ated = 1178842911) message] The system which generated this result transmitted reference range : <=125. The reference range was not used to interpret this result as normal/abnormal . AMADOU (test code = AMADOU) Biotin has been reported to cause a negative bias, interpret results relative to patient's use of biotin. Lab Interpretation Abnormal (test code = 48607-7) [facility] [id number] 01:53:00 Test Item Value Reference Range Interpretation Comments TROPONIN I (test 0.002 ng/mL See_Comment [Automated code = 4588305328) message] The system which generated this result [...] ? Lab Interpretation Normal (test code = 68832-2) [facility]. METABOLIC PANEL (27867)2020-05-07 01:43:00 Test Item Value Reference Range Interpretation Comments NA (test code = 140 mmol/L 135-145 2499770556) K (test code = 3.8 mmol/L 3.5-5 7061893634) CL (test code = 104 mmol/L 98-108 4705782222) CO2 TOTAL (test code = 29 mmol/L 23-31 2009031701) AGAP (test code = 2-16 4653299148) BUN (test code = 15 mg/dL 7-23 3202231114) GLUCOSE (test code = 85 mg/dL 70-110 9341453799) CREATININE (test code = 0.69 mg/dL 0.5-1.04 5014292887) TOTAL BILI (test code = 0.5 mg/dL 0.1-1.1 3698849010) CALCIUM (test code = 10.0 mg/dL 8.6-10.6 8579731528) T PROTEIN (test code = 7.6 g/dL 6.3-8.2 6371760643) ALBUMIN (test code = 4.4 g/dL 3.5-5 2549533421) ALK PHOS (test code = 126 U/L 34-122 H 8916239936) ALTv (test code = 21 U/L 5-35 1742-6) AST(SGOT) (test code = 25 U/L 13-40 6083458449) eGFR Calculation mL/min/1.73m2 (Non-) (test code = 4246024590) eGFR Calculation mL/min/1.73m2 () (test code = 0772449249) AMADOU (test code = AMADOU) Association of [...] tests). Lab Interpretation Abnormal (test code = 39255-2) [facility], [id number] 01:42:00 Test Item Value Reference Range Interpretation Comments LIPASE (test code = 8617547243) 72 U/L 0-220 Lab Interpretation (test code = Normal 02468-4) [facility]eraPTT2021-03-06 01:39:00 Test Item Value Reference Range Interpretation Comments APTT Patient (test See_Comment [Automat ed code = 3173-2) message] The system which generated this result transmitted reference range : 23 - 38 Seconds . The reference range was not used to interpr et this result as normal/abnormal . AMADOU (test code = AMADOU) The [facility] patient population mean normal value for aPTT is 30 seconds. Lab Interpretation Normal (test code = 89671-6) [facility] Center[facility] / [id number] 01:36:00 Test Item Value Reference Range Interpretation [...] tions. Lab Interpretation (test Normal code = 14186-2) [facility] WITH [id number] 01:32:00 Test Item Value Reference Range Interpretation Comments WBC (test code = See_Comment H [Automated 0490-2) message] The sy stem which generated this result transmitted reference range : 4.30 - 11.10 10*3/?L. The reference range was not used to interpret this result as normal/abnormal . RBC (test code = See_Comment [Automated 859-8) message] The sy stem which generated this [...] RDW-SD (test code = 42.9 fL 39-49.9 29244-2) RDW-CV (test code = 13.1 % 12-15.5 788-0) PLT (test code = See_Comment H [Automated 777-3) message] The sy stem which generated this result transmitted reference range : 166 - 358 10*3/ ?L. The reference r dagoberto was not used to interpret this result as normal/abnormal . MPV (test code = 11.1 fL 9.5-12.9 38677-7) NRBC/100 WBC (test See_Comment [Automat ed code = 9731900168) message] The system which generated this result transmitted reference range : 0.0 - 10.0 /100 WBCs. The refer ence range was not u sed to interpret th is result as normal/abnormal . NRBC x10^3 (test code <0.01 See_Comment [Auto mated = 8882801886) message] The s ystem which generated this result transmitted reference range : 10*3/?L. The reference range was not used to interpret this result as normal/abnormal . GRAN MAT (NEUT) % 58.0 % (test code = 770-8) IMM GRAN % (test code 0.50 % = 4696939642) LYMPH % (test code = 32.3 % 736-9) MONO % (test code = 6.7 % 5905-5) EOS % (test code = 1.6 % 713-8) BASO % (test code = 0.9 % 706-2) GRAN MAT x10^3(ANC) 6.47 10*3/uL 1.88-7.09 (test code = 9468533202) IMM GRAN x10^3 (test 0.06 10*3/uL 0-0.06 code = 9755647636) LYMPH x10^3 (test code 3.61 10*3/uL 1.32-3.29 H = 731-0) MONO x10^3 (test code 0.75 10*3/uL 0.33-0.92 = 742-7) EOS x10^3 (test code = 0.18 10*3/uL 0.03-0.39 711-2) BASO x10^3 (test code 0.10 10*3/uL 0.01-0.07 H = 704-7) Lab Interpretation Abnormal (test code = 77045-9) [facility]"
[2022-09-19 17:35] LABS: Absolute Lymphocytes (CBC) 3.3 K/uL (0.7-4.9); Hematocrit 44.9 % (36.0-45.0); Lymphocytes % 28.5 % (15.3-44.8); MCV 88.6 fL (80-100); MPV 8.7 fL (7.6-11.3); RBC Red Blood Cell Count 5.06 M/uL (3.86-4.86)
[2022-09-19] MEDS ORDERED: NA CHLORIDE 0.9% 1,000 ML ONE (17:44)
[2022-09-19] MEDS ORDERED: MECLIZINE HCL 12.5 MG TAB ONE (17:44)
[2022-09-19] MEDS ORDERED: PANTOPRAZOLE 40 MG INJ ONE (17:44)
[2022-09-19] MEDS ORDERED: ONDANSETRON 4 MG/2 ML VIAL ONE (17:44)
--- NOTE | 2022-09-19 17:54 | RAD REPORT ---
EXAM DESCRIPTION: CT - Head Brain Wo Cont - 09/19/2022 5:34 pm CLINICAL HISTORY: Dizziness COMPARISON: September 18, 2022 TECHNIQUE: Computed axial tomography of the head was obtained. IV contrast was not requested. All CT scans are performed using dose optimization technique as appropriate and may include automated exposure control or mA/KV adjustment according to patient size. FINDINGS: An intracranial bleed is not seen The ventricles are normal in caliber No significant hypodense areas within the brain visualized No extra-axial fluid collection is noted. Fluid within the sinuses/ mastoids is not seen IMPRESSION: No acute intracranial abnormality is seen If patient's symptoms persist MRI of the brain would be recommended
[2022-09-19 18:00] LABS: ALT/SGPT 23 U/L (13-56); AST/SGOT 14 U/L (15-37); Albumin 3.2 g/dL (3.4-5.0); Alkaline Phosphatase 111 U/L (45-117); BUN Blood Urea Nitrogen 20 mg/dL (7-18); Bicarbonate 26 mEq/L (21-32); Bilirubin Total 0.1 mg/dL (0.2-1.0); Glomerular Filtration Rate 80 ml/min (=/>90); Glucose Level 114 mg/dL (74-106); Magnesium 2.3 mg/dL (1.6-2.4); Potassium 3.8 mEq/L (3.5-5.1); Protein, Total 7.3 g/dL (6.4-8.2); Sodium Level 140 mEq/L (136-145); Troponin High Sensitivity 5.4 pg/mL (<58.9)
[2022-09-19 18:06] LABS: Bilirubin Direct < 0.1 mg/dL (0-0.2); Bilirubin Indirect, Calculated ND mg/dL (0.2-0.8)
[2022-09-19 18:15] LABS: Specific Gravity > 1.030 (1.005-1.030)
[2022-09-19 18:17] LABS: Specific Gravity > 1.030 (1.005-1.030); Urine Bacteria <20 /HPF (<20); Urine Bilirubin NEGATIVE (Negative); Urine Blood Negative (Negative); Urine Clarity Extremely Turbid (Clear); Urine Color Yellow (Yellow); Urine Glucose NEGATIVE (Negative); Urine Mucus Slight /HPF (None Seen); Urine Protein 1+ (Negative); Urine Urobilinogen 1+ (Normal); Urine pH 7.5 (5.0-7.0)
--- NOTE | 2022-09-19 18:35 | RAD REPORT ---
EXAM DESCRIPTION: Munir Single View09/19/2022 5:51 pm CLINICAL HISTORY: Chest pain COMPARISON: none FINDINGS: The lungs appear clear of acute infiltrate. The heart is normal size. Postsurgical change s involve the chest IMPRESSION: No acute abnormalities displayed
--- NOTE | 2022-09-19 19:46 | RAD REPORT ---
EXAM DESCRIPTION: MRI - Brain Wo Cont - 09/19/2022 7:32 pm CLINICAL HISTORY: Dizziness/ataxia COMPARISON: Head CT September 19, 2022 CT TECHNIQUE: Axial, sagittal, and coronal magnetic resonance images of the brain were obtained. FINDINGS: No significant abnormal signal within the brain Diffusion-weighted/ADC mapping does not reveal evidence of acute infarction. The ventricles are normal caliber. An extra-axial fluid collection is not noted. Empty sella turcica Fluid within the sinuses/mastoids is not seen IMPRESSION: No acute intracranial abnormality noted
--- NOTE | 2022-09-19 19:52 | RAD REPORT ---
EXAM DESCRIPTION: MRI - C Spine Wo Cont - 09/19/2022 7:32 pm CLINICAL HISTORY: Right arm radiculopathy. Neck pain COMPARISON: September 18, 2022 TECHNIQUE: Magnetic resonance imaging of the cervical spine was obtained. Sagittal and axial images completed. FINDINGS: No significant abnormality craniocervical junction C2-3 unremarkable. Small disc bulge and osteophytes at C3-4 mildly encroach upon left anterior aspect of thecal sac. C4-5 are unremarkable Small to moderate right disc osteophyte complex C5-6 narrows the right anterior aspect of thecal sac and right neural foramina. C6-7 and C7-T1 unremarkable The spinal cord is normal caliber and signal. No significant abnormal signal within the bones is noted. IMPRESSION: Small to moderate right disc osteophyte complex C5-6
--- NOTE | 2022-09-19 20:44 | ER ---
Nurse's Notes [facility] Name: Heather Schmitt Age: 42 yrs Sex: Female : 1980 Arrival Date: 09/19/2022 Time: 16:45 Bed 13 Private MD: Diagnosis: Dizziness and giddiness;Cervicalgia;Nausea;Headache Presentation: 09/19 16:57 Chief complaint: Patient states: Slipped and fell on Saturday, hit head, was seen in ED, ph sent home w/ nausea medication and muscle relaxers, c/o dizziness, headache, N/V. Coronavirus screen: Vaccine status: Patient reports being unvaccinated. Ebola Screen: No symptoms or risks identified at this time. Initial Sepsis Screen: Does the patient meet any 2 criteria? No. Patient's initial sepsis screen is negative. Does the patient have a suspected source of infection? No. Patient's initial sepsis screen is negative. Risk Assessment: Do you want to hurt yourself or someone else? Patient reports no desire to harm self or others. Onset of symptoms was September 19, 2022. 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 - Social history:: Smoking status: unknown. Screenin:59 [facility] ED Fall Risk Assessment (Adult) History of falling in the last 3 months, ph including since admission Yes- single mechanical fall (1 pt) Confusion or Disorientation No (0 pts) Intoxicated or Sedated No (0 pts) Impaired Gait No (0 pts) Mobility Assist Device Used No (0 pt) Altered Elimination No (0 pt) Score/Fall Risk Level 0 - 2 = Low Risk Oriented to surroundings, Maintained a safe environment, Hourly rounding (assess needs \T\ fall precautionary measures) done. Abuse screen: Denies threats or abuse. Denies injuries from another. Nutritional screening: No deficits noted. Tuberculosis screening: No symptoms or risk factors identified. Assessment: 17:17 General: Appears in no apparent distress. uncomfortable, Behavior is calm, cooperative, ll1 appropriate for age. Pain: Complains of pain in back of neck, posterior chest and back, left Pain currently is 7 out of 10 on a pain scale. Neuro: Level of Consciousness is awake, alert, obeys commands, Oriented to person, place, time, situation, Reports dizziness, since Sam. Cardiovascular: Patient's skin is warm and dry. Respiratory: Airway is patent Respiratory effort is even, unlabored. GI: Reports nausea. 18:50 Reassessment: Patient appears in no apparent distress at this time. Patient and/or nj1 family updated on plan of care and expected duration. Pain level reassessed. Patient is alert, oriented x 3, equal unlabored respirations, skin warm/dry/pink. 19:55 Reassessment: Patient appears in no apparent distress at this time. Patient and/or nj1 family updated on plan of care and expected duration. Pain level reassessed. Patient is alert, oriented x 3, equal unlabored respirations, skin warm/dry/pink. Vital Signs: 16:57 BP 141 / 105; Pulse 79; Resp 18; Temp 97.3; Pulse Ox 99% on R/A; Weight 90.72 kg; ph Height 5 ft. 1 in. ; 18:10 BP 133 / 78 Supine; Pulse 63; ll1 18:10 BP 138 / 83 Sitting; Pulse 65; ll1 18:10 BP 129 / 87 Standing; Pulse 70; ll1 18:50 BP 136 / 84; Pulse 61; Resp 16; Pulse Ox 99% on R/A; Pain 7/10; nj1 19:54 Pulse 58; Resp 18; Pulse Ox 100% ; Pain 7/10; nj1 21:24 BP 155 / 103; Pulse 76; Resp 16; Pulse Ox 97% on R/A; cm10 16:57 Body Mass Index 37.79 (90.72 kg, 154.94 cm) ph 18:50 Pain Scale: Adult nj1 19:54 Pain Scale: Adult nj1 ED Course: 16:47 Patient arrived in ED. mr 16:50 Arm band placed on Patient placed in an exam room, on a stretcher. ll1 16:53 Mk Chavez PA is PHCP. cp 16:53 Josh Gill MD is Attending Physician. cp 16:59 Triage completed. ph 17:00 Dontrell, Lynsay, RN is Primary Nurse. ll1 17:20 Patient has correct armband on for positive identification. Bed in low position. Call ll1 light in reach. 17:20 Provided Education on: fall precautions. ll1 17:29 Basic Metabolic Panel Sent. ds4 17:29 CBC with Diff Sent. ds4 17:29 LFT's Sent. ds4 17:29 Troponin HS Sent. ds4 17:29 Magnesium Sent. ds4 17:29 Inserted saline lock: 22 gauge in right forearm, using aseptic technique. Blood ds4 collected. 17:35 CT Head Brain wo Cont: fall 2 days ago In Process Unspecified. EDMS 17:53 XRAY Chest (1 view) In Process Unspecified. EDMS 19:29 C Spine Wo Cont In Process Unspecified. EDMS 19:30 MRI - Brain Wo Cont In Process Unspecified. EDMS 21:24 No provider procedures requiring assistance completed. IV discontinued, intact, cm10 bleeding controlled, No redness/swelling at site. Pressure dressing applied. Administered Medications: 17:40 Drug: Meclizine PO 25 mg Route: PO; ll1 17:44 Drug: NS 0.9% IV 1000 ml Route: IV; Rate: 500 ml/hr; Site: right forearm; ll1 17:44 Drug: Ondansetron IVP 4 mg Route: IVP; Site: right forearm; ll1 17:46 Drug: Pantoprazole IVP 40 mg Route: IVP; Site: right forearm; ll1 Medication: 21:24 VIS not applicable for this client. cm10 Outcome: 20:44 Discharge ordered by MD. cp 21:24 Discharged to home ambulatory, with family. cm10 21:24 Condition: good 21:24 Discharge instructions given to patient, Instructed on discharge instructions, follow up and referral plans. medication usage, Demonstrated understanding of instructions, follow-up care, medications, Prescriptions given X 2. 21:25 Patient left the ED. cm10 Signatures: Dispatcher [employer] EDIL Jennifer Gonzalez Donovan ds4 Sherrie Hui, RN RN Mk Thomas PA PA cp Marilia Jon, RN RN ll1 Sugey Johnson RN RN nj1 Martinez, Clarissa, RN RN cm10
--- NOTE | 2022-09-19 20:44 | EDPHYS ---
Physician Documentation [facility] Name: Heather Schmitt Age: 42 yrs Sex: Female : 1980 Arrival Date: 09/19/2022 Time: 16:45 Bed 13 Private MD: ED Physician Josh Gill HPI: 09/19 17:15 This 42 yrs old Female presents to ER via Ambulatory with complaints of Nausea, cp Dizziness. 17:15 The patient presents to the emergency department with nausea, that is moderate, cp vomiting, that is intermittent. Onset: The symptoms/episode began/occurred 2 day(s) ago. 17:15 The patient presents with dizziness, generalized weakness, lightheadedness. cp 17:15 Onset: The symptoms/episode began/occurred 2 day(s) ago. Associated signs and symptoms: cp Pertinent positives: neck pain, Pertinent negatives: abdominal pain, chest pain, confusion, focal weakness, syncope. Patient's baseline: Neuro: alert and fully oriented, Motor: no deficits, Ambulation: walks without assistance, Speech: normal. Patient returns to ED with c/o dizziness, nausea, headache, neck pain. Patient sustained fall 2 days ago and was seen and evaluated by me in this ED. CT done of head/c-spine, chest/abdomen/pelvis. 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 - Social history:: Smoking status: unknown. ROS: 17:20 Constitutional: Negative for body aches, chills, fever, poor PO intake. cp 17:20 Eyes: Negative for injury, pain, redness, and discharge. cp 17:20 ENT: Negative for drainage from ear(s), ear pain, sore throat, difficulty swallowing, difficulty handling secretions. 17:20 Cardiovascular: Negative for chest pain, edema, palpitations. 17:20 Respiratory: Negative for cough, shortness of breath, wheezing. 17:20 Abdomen/GI: Positive for nausea, Negative for abdominal pain, vomiting, diarrhea, constipation, black/tarry stool, rectal bleeding. 17:20 Back: Negative for pain at rest, pain with movement. 17:20 : Negative for urinary symptoms. 17:20 Neuro: Positive for dizziness, headache, weakness, Negative for altered mental status. 17:20 All other systems are negative. Exam: 17:25 Constitutional: The patient appears in no acute distress, alert, awake, cp non-diaphoretic, non-toxic, well developed, well nourished. 17:25 Head/Face: Normocephalic, atraumatic. cp 17:25 Eyes: Periorbital structures: appear normal, Pupils: equal, round, and reactive to cp light and accomodation, Extraocular movements: intact throughout, Conjunctiva: normal, no exudate, no injection, Sclera: no appreciated abnormality, Lids and lashes: appear normal, bilaterally. 17:25 ENT: External ear(s): are unremarkable, Ear canal(s): are normal, clear, TM's: dullness, bilaterally, Nose: is normal, Mouth: Lips: moist, Oral mucosa: pink and intact, moist, Posterior pharynx: is normal, airway is patent, no erythema, no exudate. 17:25 Neck: External neck: tenderness, that is mild, of the left mid cervical area and left cp trapezius, ROM/movement: pain, that is mild, with rotation to the left, limited range of motion, is not appreciated. 17:25 Chest/axilla: Inspection: normal. 17:25 Cardiovascular: Rate: normal, Rhythm: regular, Edema: is not appreciated, JVD: is not appreciated. 17:25 Respiratory: the patient does not display signs of respiratory distress, Respirations: normal, no use of accessory muscles, no retractions, labored breathing, is not present, Breath sounds: are clear throughout, no decreased breath sounds, no stridor, no wheezing. 17:25 Abdomen/GI: Inspection: abdomen appears normal, Palpation: abdomen is soft and non-tender, in all quadrants. 17:25 Back: CVA tenderness, is absent, vertebral tenderness, is not appreciated. 17:25 Neuro: Orientation: to person, place \T\ time. Mentation: is normal, Cerebellar function: Romberg testing is negative, Motor: moves all fours, strength is normal, Sensation: is normal. 17:50 ECG was reviewed by the Attending Physician. cp Vital Signs: 16:57 BP 141 / 105; Pulse 79; Resp 18; Temp 97.3; Pulse Ox 99% on R/A; Weight 90.72 kg; ph Height 5 ft. 1 in. ; 18:10 BP 133 / 78 Supine; Pulse 63; ll1 18:10 BP 138 / 83 Sitting; Pulse 65; ll1 18:10 BP 129 / 87 Standing; Pulse 70; ll1 18:50 BP 136 / 84; Pulse 61; Resp 16; Pulse Ox 99% on R/A; Pain 7/10; nj1 19:54 Pulse 58; Resp 18; Pulse Ox 100% ; Pain 7/10; nj1 21:24 BP 155 / 103; Pulse 76; Resp 16; Pulse Ox 97% on R/A; cm10 16:57 Body Mass Index 37.79 (90.72 kg, 154.94 cm) ph 18:50 Pain Scale: Adult nj1 19:54 Pain Scale: Adult nj1 MDM: 16:53 Patient medically screened. 17:30 Differential diagnosis: CVA, generalized weakness, head injury, hypovolemia, idiopathic cp dizziness, TIA, vertigo. 20:44 Data reviewed: vital signs, nurses notes, lab test result(s), EKG, radiologic studies, cp CT scan, MRI, plain films. 20:44 I considered the following discharge prescriptions or medication management in the emergency department Medications were administered in the Emergency Department. See MAR. Counseling: I had a detailed discussion with the patient and/or guardian regarding: the historical points, exam findings, and any diagnostic results supporting the discharge/admit diagnosis, lab results, radiology results, to return to the emergency department if symptoms worsen or persist or if there are any questions or concerns that arise at home. Response to treatment: the patient's symptoms have mildly improved after treatment, and as a result, I will discharge patient. 09/19 17:10 Order name: Basic Metabolic Panel; Complete Time: 18:23 09/19 18:23 Interpretation: Normal except: CL 111; GLUC 114; BUN 20; GFR 80. 09/19 17:10 Order name: CBC with Diff; Complete Time: 18:23 09/19 18:23 Interpretation: Normal except: WBC 11.40; RBC 5.06; BASO% 1.6. 09/19 17:10 Order name: LFT's; Complete Time: 18:23 cp 09/19 18:23 Interpretation: Normal except: AST 14; BILIT 0.1; ALB 3.2; GLOB 4.1; A/G 0.8. cp 09/19 17:10 Order name: Magnesium; Complete Time: 18:23 cp 09/19 17:10 Order name: Troponin HS; Complete Time: 18:23 cp 09/19 17:10 Order name: Urinalysis W/Microscopic; Complete Time: 18:23 cp 09/19 18:24 Interpretation: Normal except: [facility] Extremely Turbid; Urine SG > 1.030; UPH 7.5; UPROT cp 1+; UUROB 1+; URBC 5-10; SQEPI 20-50; NSE 5-10. 09/19 17:10 Order name: PREGU; Complete Time: 18:23 cp 09/19 18:24 Interpretation: Abnormal: Urine SG > 1.030. 09/19 17:10 Order name: XRAY Chest (1 view); Complete Time: 20:40 cp 09/19 20:40 Interpretation: Report review. 09/19 17:22 Order name: CT Head Brain wo Cont: fall 2 days ago; Complete Time: 18:23 cp 09/19 17:22 Order name: MRI - Brain Wo Cont; Complete Time: 20:40 cp 09/19 19:29 Order name: C Spine Wo Cont; Complete Time: 20:40 EDMS 09/19 17:10 Order name: EKG; Complete Time: 17:11 cp 09/19 17:10 Order name: Orthostatics; Complete Time: 18:10 cp 09/19 17:10 Order name: Cardiac monitoring; Complete Time: 17:57 cp 09/19 17:10 Order name: EKG - Nurse/Tech; Complete Time: 17:57 cp 09/19 17:10 Order name: IV Saline Lock; Complete Time: 17:29 cp 09/19 17:10 Order name: Labs collected and sent; Complete Time: 17:29 cp 09/19 17:10 Order name: O2 Per Protocol; Complete Time: 17:29 cp 09/19 17:10 Order name: O2 Sat Monitoring; Complete Time: 17:29 cp 09/19 20:39 Order name: PO challenge; Complete Time: 21:13 cp EC:50 Rate is 74 beats/min. Rhythm is regular. AR interval is normal. QRS interval is normal. cp QT interval is normal. T waves are Inverted in lead V2. Interpreted by me. Reviewed by me. Administered Medications: 17:40 Drug: Meclizine PO 25 mg Route: PO; ll1 17:44 Drug: NS 0.9% IV 1000 ml Route: IV; Rate: 500 ml/hr; Site: right forearm; ll1 17:44 Drug: Ondansetron IVP 4 mg Route: IVP; Site: right forearm; ll1 17:46 Drug: Pantoprazole IVP 40 mg Route: IVP; Site: right forearm; ll1 Disposition: 09/20 14:24 Co-signature as Attending Physician, Josh Gill MD I reviewed the patient's care rn provided by the Advanced Practice Provider and agree with the diagnosis and treatment plan. Disposition Summary: 09/19/22 20:44 Discharge Ordered Location: Home cp Problem: new cp Symptoms: have improved cp Condition: Stable cp Diagnosis - Dizziness and giddiness cp - Cervicalgia cp - Nausea cp - Headache cp Followup: cp - With: Private Physician - When: 2 - 3 days - Reason: Recheck today's complaints Discharge Instructions: - Discharge Summary Sheet cp - Dizziness cp - General Headache Without Cause cp - Musculoskeletal Pain cp - Nausea, Adult cp - Neck Exercises cp Forms: - Medication Reconciliation Form cp - Thank You Letter cp - Antibiotic Education cp - Prescription Opioid Use cp - Patient Portal Instructions cp Prescriptions: - Meclizine 25 mg Oral Tablet - take 1 tablet by ORAL route every 8 hours As needed; 30 tablet; Refills: 0, cp Product Selection Permitted - Zofran 4 mg Oral Tablet - take 1 tablet by ORAL route every 12 hours As needed; 20 tablet; Refills: 0, cp Product Selection Permitted Signatures: Dispatcher [employer] EDMS Josh Gill MD MD rn Page, Corey, PA PA cp Marilia Jon RN RN ll1 Marisol Matt RN RN cm10 Corrections: (The following items were deleted from the chart) 09/19 19:29 17:23 Neck Without Cont+MRI.RAD.BRZ ordered. EDMS EDMS
[2022-09-19 21:44] VITALS: TEMP 97.3
[2022-09-19 21:54] VITALS: BP 155/103; O2SAT 97
--- NOTE | 2022-09-20 12:03 | EKG ---
Test Date: 2022-09-19 Test Time: 17:44:20 Consulting Technical Director: SAYDA MEASUREMENT RESULTS: Intervals: Rate: 74 MO: 146 QRSD: 82 QT: 398 QTc: 441 [place]: P: 68 MO: 146 QRS: 92 T: 78 INTERPRETIVE STATEMENTS: Normal sinus rhythm Rightward axis Borderline ECG Compared to ECG 12/29/2020 22:10:52 Right-axis deviation now present ST (T wave) deviation no longer present Electronically Signed On 09-20-22 12:02:00 CDT by Nixno Ayala
== END 2022-09-19 21:25 | disposition home or self-care (01) ==
LOC: ER 16:45
DX: R42 Dizziness and giddiness (principal); M54.2 Cervicalgia; R11.0 Nausea; R51.9 Headache, unspecified
CPT/HCPCS: 36415; 70450; 70551; 71045; 72141; 80048; 80076; 81001; 81025; 83735; 84484; 85025; 93005; C9113; J2405; J7030; J8597

== ENCOUNTER 2022-09-30 19:44 | Emergency (ER) | payer SELFPAY ==
--- OUTSIDE RECORDS SUMMARY | 2022-09-30 19:48 | XMS REPORT | Continuity of Care Document ---
:1980 Author Organization [facility] t Address [address] [place] [address] Care Team Providers Name Role Phone PCP, PATIENT DOES NOT HAVE A Primary Care Physician Unavaila ble Doctor Unassigned, [place] Attending Clinician Unavailable Frida Mata DO Attending Clinician FRIDA MATA Attending Clinician Unavailable OAPL ROBERTSON Admitting Clinician Unavailable Problems Condition Condition Condition Status Onset Resolution Last Treating Co mments Source Name Details Category Date Date Treatment Clinician Date No known No known Disease Unive rs active active ity of problems problems [facility] Allergies, Adverse Reactions, Alerts Allergy Allergy Status [...] 3-05 ity of 00:00: [place] 00 Medical [place] ASPIRIN DRUG Active Rash 2020-0 Univers INGREDI 3-05 ity of 00:00: [place] 00 [facility] Social History Social Habit Start Date Stop Date Quantity Comments Source Exposure to Not sure [facility] SARS-CoV-2 (event) Medica l Branch Sex Assigned At [birth year] [facility] [place] [facility]:00:00 Medical Branch Smoking Status Start Date Stop Date Source Tobacco smoking consumption [facility] Branch Medications Ordered Filled Start Stop Current Ordering Indication Dosage Frequency Signature Comments Components Source Medication Medication Date Date Medication? Clinician (SIG) Name Name FENTanyl PF No 50ug 50 mcg, Un shady (SUBLIMAZE 05-07 Slow IV ity o f (PF)) 04:15: 03:14 Push, [place] injection 00 :00 ONCE, 1 Medical 50 mcg dose, Fri [place] 05/06/20 at 2215, Routine maalox:diph No 15mL 15 mL, Uni vers enhydrAMINE 05-07 Oral, ity of :lidocaine 03:15: 03:14 ONCE, 1 [place] as 2 % viscous 00 :00 dose, Fri Med ical 1:1:1 05/06/20 at [place] (FIRST-MOUT 2114, IRIS HWASH BLM) oral suspension [...] mg 00 :00 ONCE, 1 Medical dose, [facility] 05/06/20 at 1945, IRIS
Fa culty member approving Restricted medication : FRIDA MATA sodium Yes 5mL 5 mL, Univers chloride 06 Intravenou ity o f (NS) 00:54: s, PRN, [place] injection 5 41 Starting Medi cody mL [facility] 05/06/20 [place] at 1854, Until Discontinu ed, Routine, IV line flushing No known No No known Unive rs medications 3-05 medication it y of 19:29: s [address] No known No Univers medications ity of [facility] Vital Signs Vital Name Observation Time Observation Value Comments Source Systolic blood 2020-05-07 05:00:00 135 mm[Hg] Univer sity of pressure [facility] Branch Diastolic blood 2020-05-07 05:00:00 76 mm[Hg] Unive rsity of pressure [facility] Branch Heart rate 2020-05-07 05:00:00 63 /min Universi ty of [facility] Respiratory rate 2020-05-07 05:00:00 20 /min Univ ersity of [facility] Oxygen saturation in 2020-05-07 05:00:00 95 /min University of Arterial blood by [facility] cody Pulse oximetry Branch Body temperature 2020-05-07 00:50:00 37 Lacy Univ ersity of [facility] Body height 2020-05-07 00:48:00 157.5 cm Universi ty of [facility] Body weight 2020-05-07 00:48:00 97.523 kg Universi ty of [facility] BMI 2020-05-07 00:48:00 39.32 kg/m2 Universi ty of [facility] Systolic blood 2020-05-07 05:00:00 135 mm[Hg] Univer sity of pressure [facility] Diastolic blood 2020-05-07 05:00:00 76 mm[Hg] Unive rsity of pressure [facility] Heart rate 2020-05-07 05:00:00 63 /min Universi ty of [facility] Respiratory rate 2020-05-07 05:00:00 20 /min Univ ersity of [facility] Oxygen saturation in 2020-05-07 05:00:00 95 /min University of Arterial blood by [place] [facility] cody Pulse oximetry Branch Body temperature 2020-05-07 00:50:00 37 Lacy Univ ersity of [facility] Body height 2020-05-07 00:48:00 157.5 cm [facility] [place] [facility] Body weight 2020-05-07 00:48:00 97.523 kg [facility] [place] [facility] BMI 2020-05-07 00:48:00 39.32 kg/m2 [facility] [place] [facility] Procedures Procedure Date / Time Performing Clinician Source Performed REFERRAL- 2021-07-21 05:01:00 Doctor Unassigned, No [facility] [place] REQUEST/RESPONSE Name Medical Branch TROPONIN I 2020-05-07 03:04:[address] [facility] XR CHEST 1 VW 2020-05-07 01:09:[facility]IVACY 2020-05-07 01:09:22 Doctor Unassigned, No Univ [facility] PRACTICES Name Medical Branch LIPASE 2020-05-07 00:57:00 Singer [facility] TROPONIN I 2020-05-07 00:57:00 Singer [facility] COMP. METABOLIC PANEL 2020-05-07 00:57:00 Singer [facility] ([id number]) [facility] CBC WITH DIFF 2020-05-07 00:57:00 [facility] PROTHROMBIN TIME / INR 2020-05-07 00:57:00 Robertson, [facility] ACTIVATED PARTIAL 2020-05-07 00:57:00 [facility] THRLAS [facility] N-TERMINAL PRO-BNP 2020-05-07 00:57:00 Frida Mata General acute hospital CONSENT/REFUSAL FOR 2020-05-07 00:39:34 Doctor Unassigned, No [facility] DIAGNOSIS AND TREATMENT [facility] Encounters Start End Encounter Admission Attending Care Care Encounter Source Date/Time Date/Time Type Type Clinicians Facility Department ID 2022-07-14 2022-07-14 Outpatient [facility] [place] 14:20:50 14:20:50 [id number] [facility] 2022-07-12 2022-07-12 Outpatient [facility] 14:06:26 14:06:26 [id number] [facility] 2022-05-02 2022-05-02 Outpatient [facility] [place] 17:36:14 17:36:14 [id number] [facility] 2021-07-21 2021-07-21 Orders Doctor BRADFORD [id number] Univers 00:00:00 00:00:00 Only Unassigned, CARMEN [id number] ity of [place] [facility] [id number] Tommy as [id number] [place] [address] Branch 2020-05-06 2020-05-06 Emergency AdolfoRUST [id number] Univers 18:43:00 23:57:00 Frida Hernandez [id number] ity [facility] [id number] [facility] [id number] [address] 2020-05-06 2020-05-06 Emergency X ADOLFORUST ERT [id number] Univers 18:43:00 23:57:00 FRIDA [facility] 2020-05-06 2020-05-06 Emergency AdolfoRUST [id number] 18:43:00 23:57:00 Frida Hernandez [id number] [place] [id number] [place] [id number] Results Test Description Test Time Test Comments Results Result Comments Source SARS-CoV-2 (COVID-19), RT-PCR/TMA 2021-03-24 14:21:21 Test Item Value Reference Range Interpretation Comme nts SARS-CoV-2 INTERPRETATION NEGATIVE SEE NOTE S ARS-CoV-2 RNA NOT (test code = 03837) DETECTED Negative results do not preclude SARS-C [...] prevalence is high. SOURCE (test code = 14249) NASOPHARYNGEAL Note: Methodology is Souleymane Wendi Real-Time RT-PCR. The expected result or reference range is NEGATI VE (Not Detected). For more information regarding COVID -19 testing to include clinica linformation, methodology det ail, intended use, FDA author ization andrecommended fact sheets for patients or hea lthcare providers, see [employer] Announcement: S ARS-CoV-2 (COVID-19) by Maki MAYS at URL below (note,fact shee ts are provided by method given in report:https:// www.[employer]/ clinicians/deedee nt-communication s/ Alternativel y, see downloadable PD F fact sheet at:https://www. [employer]/COVI D-19-RT-PCR UNL ESS OTHERWISE INDICATED, ALL TESTING PERFORMED [facility], [facility]. [address] [place] [address] 4 DUPLICATOR PUNCH SET UP OPERATOR: June DANIELS [id number] CAP ACCREDITATION N O. [id number] Troponin [id number] 03:35:00 Test Item Value Reference Range Interpretation Comments TROPONIN I (test 0.001 ng/mL See_Comment [Automated code = 3382553864) message] The system which generated this result [...] ? Lab Interpretation Normal (test code = 41123-0) [facility] [id number] 02:42:22 No acute cardiopulmonary abnormality. Preliminary Report [...] abnormality. Multiple sternotomy wires are seen. [facility], Radiant Results Inft User - 05/06/2020 8:43 [...] reviewed this study and agree with theabove report.[facility] [id number] 02:00:00 Test Item Value Reference Range Interpretation Comments NT-proBNP (test code 126 pg/mL See_Comment H [Autom ated = 5878023899) message] The system which generated this result transmitted reference range : <=125. The reference range was not used to interpret this result as normal/abnormal . AMADOU (test code = AMADOU) Biotin has been reported to cause a negative bias, interpret results relative to patient's use of biotin. Lab Interpretation Abnormal (test code = 50251-2) [facility] [id number] 01:53:00 Test Item Value Reference Range Interpretation Comments TROPONIN I (test 0.002 ng/mL See_Comment [Automated code = 4809876907) message] The system which generated this result [...] ? Lab Interpretation Normal (test code = 43803-7) [id number][facility]-07 01:43:00 Test Item Value Reference Range Interpretation Comments NA (test code = 140 mmol/L 135-145 5060489085) K (test code = 3.8 mmol/L 3.5-5 6168277717) CL (test code = 104 mmol/L 98-108 8196163252) CO2 TOTAL (test code = 29 mmol/L 23-31 3420614228) AGAP (test code = 2-16 9179612207) BUN (test code = 15 mg/dL 7-23 7545643890) GLUCOSE (test code = 85 mg/dL 70-110 1456140971) CREATININE (test code = 0.69 mg/dL 0.5-1.04 6731930657) TOTAL BILI (test code = 0.5 mg/dL 0.1-1.5 2175201570) CALCIUM (test code = 10.0 mg/dL 8.6-10.6 7600492078) T PROTEIN (test code = 7.6 g/dL 6.3-8.2 6584221261) ALBUMIN (test code = 4.4 g/dL 3.5-5 7120682129) ALK PHOS (test code = 126 U/L 34-122 H 1995326631) ALTv (test code = 21 U/L 5-35 1742-6) AST(SGOT) (test code = 25 U/L 13-40 0963637759) eGFR Calculation mL/min/1.73m2 (Non-) (test code = 6489125627) eGFR Calculation mL/min/1.73m2 () (test code = 6450161632) AMADOU (test code = AMADOU) Association of [...] tests). Lab Interpretation Abnormal (test code = 69579-3) [facility] [id number] 01:42:00 Test Item Value Reference Range Interpretation Comments LIPASE (test code = 8532864869) 72 U/L 0-220 Lab Interpretation (test code = Normal 89941-9) [facility] 01:39:00 Test Item Value Reference Range Interpretation Comments APTT Patient (test See_Comment [Automat ed code = 3173-2) message] The system which generated this result transmitted reference range : 23 - 38 Seconds . The reference range was not used to interpr et this result as normal/abnormal . AMADOU (test code = AMADOU) The [facility] patient population mean normal value for aPTT is 30 seconds. Lab Interpretation Normal (test code = 62313-2) [facility] / [id number] 01:36:00 Test Item Value Reference Range Interpretation [...] tions. Lab Interpretation (test Normal code = 41324-9) [facility] WITH [id number] 01:32:00 Test Item Value Reference Range Interpretation Comments WBC (test code = See_Comment H [Automated 5790-2) message] The sy stem which generated this result transmitted reference range : 4.30 - 11.10 10*3/?L. The reference range was not used to interpret this result as normal/abnormal . RBC (test code = See_Comment [Automated 109-8) message] The sy stem which generated this [...] RDW-SD (test code = 42.9 fL 39-49.9 48801-4) RDW-CV (test code = 13.1 % 12-15.5 788-0) PLT (test code = See_Comment H [Automated 777-3) message] The sy stem which generated this result transmitted reference range : 166 - 358 10*3/ ?L. The reference r dagoberto was not used to interpret this result as normal/abnormal . MPV (test code = 11.1 fL 9.5-12.9 41278-4) NRBC/100 WBC (test See_Comment [Automat ed code = 1659988396) message] The system which generated this result transmitted reference range : 0.0 - 10.0 /100 WBCs. The refer ence range was not u sed to interpret th is result as normal/abnormal . NRBC x10^3 (test code <0.01 See_Comment [Auto mated = 9982457206) message] The s ystem which generated this result transmitted reference range : 10*3/?L. The reference range was not used to interpret this result as normal/abnormal . GRAN MAT (NEUT) % 58.0 % (test code = 770-8) IMM GRAN % (test code 0.50 % = 8679413884) LYMPH % (test code = 32.3 % 736-9) MONO % (test code = 6.7 % 5905-5) EOS % (test code = 1.6 % 713-8) BASO % (test code = 0.9 % 706-2) GRAN MAT x10^3(ANC) 6.47 10*3/uL 1.88-7.09 (test code = 8206587707) IMM GRAN x10^3 (test 0.06 10*3/uL 0-0.06 code = 9277512751) LYMPH x10^3 (test code 3.61 10*3/uL 1.32-3.29 H = 731-0) MONO x10^3 (test code 0.75 10*3/uL 0.33-0.92 = 742-7) EOS x10^3 (test code = 0.18 10*3/uL 0.03-0.39 711-2) BASO x10^3 (test code 0.10 10*3/uL 0.01-0.07 H = 704-7) Lab Interpretation Abnormal (test code = 95236-7) [facility]"
[2022-09-30] MEDS ORDERED: KETOROLAC 30 MG/ML INJ ONE (20:35)
[2022-09-30] MEDS ORDERED: PROMETHAZINE 25 MG TABLET ONE (20:35)
[2022-09-30] MEDS ORDERED: HYDROCODONE/APAP 10/325 TAB ONE (20:35)
[2022-09-30] MEDS ORDERED: CYCLOBENZAPRINE 10 MG TAB ONE (20:35)
[2022-09-30 20:47] LABS: Hematocrit 45.2 % (36.0-45.0); Lymphocytes % 26.4 % (15.3-44.8); MCV 87.9 fL (80-100); MPV 8.8 fL (7.6-11.3); RBC Red Blood Cell Count 5.14 M/uL (3.86-4.86)
[2022-09-30 21:01] LABS: Potassium 3.6 mEq/L (3.5-5.1)
--- NOTE | 2022-09-30 21:11 | RAD REPORT ---
EXAM DESCRIPTION: CT - Head C Spine Cap Wo Con - 09/30/2022 8:48 pm CLINICAL HISTORY: Trauma, head and neck injury. Chest, abdomen and pelvis pain. fall, neck and back pain COMPARISON: Head C Spine Cap W Con dated 12/29/2020 TECHNIQUE: CT head without contrast. CT cervical spine without contrast with coronal and sagittal reformatted images. CT chest, abdomen and pelvis with coronal and sagittal reformatted images of the spine. All CT scans are performed using dose optimization technique as appropriate and may include automated exposure control or mA/KV adjustment according to patient size. FINDINGS: CT HEAD WITHOUT CONTRAST: No intracranial hemorrhage, hydrocephalus or extra-axial fluid collection. No acute large vascular te rritory infarct. The paranasal sinuses and mastoids are clear. The calvarium is intact. CT CERVICAL SPINE WITHOUT CONTRAST: No fracture or subluxation. The prevertebral soft tissues are normal in thickness.Mild scattered degenerative changes but without significant neural foraminal narrowing or central spinal stenosis . CT CHEST, ABDOMEN, PELVIS: Thorax: Chest Wall: No abnormal mass Lungs: No acute abnormality. Pleura: No effusions or pneumothorax. Natalya/Mediastinum: No lymphadenopathy. Aorta/Pulmonary Arteries: Unremarkable Heart: Normal size. Abdomen/Pelvis: Liver: No acute abnormality or suspicious lesions. Biliary: No biliary ductal dilatation. Stomach: No significant focal abnormality. Duodenum: No significant focal abnormality. Pancreas: No significant abnormality. Spleen: No significant abnormality. Adrenal: No suspicious lesions. Kidney/ureter: No hydronephrosis. No renal calculi. Retroperitoneum: No retroperitoneal adenopathy. Vascular: No aneurysm. Bowel: No significant focal abnormality. Peritoneum: No ascites or free air. Bladder: Grossly unremarkable. Reproductive: No adnexal masses. Bones: No acute fracture. Sternotomy. Other: n/a IMPRESSION: Negative for acute traumatic findings.
--- NOTE | 2022-09-30 23:17 | ER ---
[facility] Name: Heather Schmitt Age: 42 yrs Sex: Female : 1980 Arrival Date: 09/30/2022 Time: 19:44 Bed 20 Private MD: Diagnosis: Sprain of joints and ligaments of other parts of neck;Sprain of upper thoracic ligaments, upper back pain, acute neck pain, acute pain associated with injury in the recent fall, musculoskeletal neck and back pain Presentation: 09/30 20:20 Chief complaint: Patient states: "I had a fall on the and I've been seen for it a as6 few times and it was getting better but today I woke up and it seemed to be worse". Coronavirus screen: At this time, the client does not indicate any symptoms associated with coronavirus-19. Ebola Screen: No symptoms or risks identified at this time. Initial Sepsis Screen: Does the patient meet any 2 criteria? No. Patient's initial sepsis screen is negative. Does the patient have a suspected source of infection? No. Patient's initial sepsis screen is negative. Risk Assessment: Do you want to hurt yourself or someone else? Patient reports no desire to harm self or others. Onset of symptoms was September 30, 2022. 20:20 Acuity: JORDYN 3 as6 20:20 Method Of Arrival: Ambulatory as6 Triage Assessment: 20:17 General: Appears uncomfortable, Behavior is calm, cooperative. Pain: Complains of pain as6 in back and neck. 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 - Social history:: Smoking status: Patient reports the use of cigarette tobacco products, smokes one-half pack cigarettes per day. - Family history:: not pertinent. Screenin:30 [facility] ED Fall Risk Assessment (Adult) History of falling in the last 3 months, ll3 including since admission Yes- single mechanical fall (1 pt) Confusion or Disorientation No (0 pts) Intoxicated or Sedated No (0 pts) Impaired Gait No (0 pts) Mobility Assist Device Used No (0 pt) Altered Elimination No (0 pt) Score/Fall Risk Level 0 - 2 = Low Risk Oriented to surroundings, Maintained a safe environment, Educated pt \\T\\ family on fall prevention, incl call for assistance when getting out of bed. Abuse screen: Denies threats or abuse. Denies injuries from another. Nutritional screening: No deficits noted. Tuberculosis screening: No symptoms or risk factors identified. Assessment: 20:30 General: Appears uncomfortable, Behavior is calm, cooperative. Pain: Complains of pain ll3 in neck and back Pain does not radiate. Pain currently is 8 out of 10 on a pain scale. Pain began 1 day ago. Is continuous. Neuro: Level of Consciousness is awake, alert, obeys commands, Oriented to person, place, time, situation. Derm: Skin is pink, warm \\T\\ dry. Musculoskeletal: Circulation, motion, and sensation intact. Reports pain in neck and back since yesterday. Pain is 8 out of 10 on a pain scale. Vital Signs: 20:17 BP 159 / 111; Pulse 80; Resp 18 S; Temp 97.7(TE); Pulse Ox 99% on R/A; Weight 92.99 kg as6 (R); Height 5 ft. 1 in. (R); Pain 9/10; 22:32 BP 142 / 88; Pulse 60; Resp 16; Pulse Ox 98% on R/A; ll3 20:17 Body Mass Index 38.73 (92.99 kg, 154.94 cm) as6 20:17 Pain Scale: Adult as6 ED Course: 19:46 Patient arrived in ED. rg4 19:56 Serafin Conner MD is Attending Physician. sp4 20:17 Arm band placed on. as6 20:21 Triage completed. as6 20:50 CT Traumagram (Head C Spine CAP wo con) In Process Unspecified. EDMS 22:30 Patient has correct armband on for positive identification. Bed in low position. Call ll3 light in reach. Side rails up X 1. 22:31 No provider procedures requiring assistance completed. ll3 23:31 IV discontinued, intact, bleeding controlled, No redness/swelling at site. Pressure ll3 dressing applied. Administered Medications: 21:07 Drug: Ketorolac IM 60 mg Route: IM; Site: left deltoid; ll3 22:30 Follow up: Response: No adverse reaction; Marked relief of symptoms ll3 21:07 Drug: Promethazine PO 25 mg Route: PO; ll3 22:30 Follow up: Response: No adverse reaction ll3 21:08 Drug: [place] PO 10 mg-325 mg 1 tabs Route: PO; ll3 22:30 Follow up: Response: No adverse reaction; Marked relief of symptoms ll3 21:08 Drug: Cyclobenzaprine PO 10 mg Route: PO; ll3 22:30 Follow up: Response: No adverse reaction; Marked relief of symptoms ll3 Medication: 22:31 VIS not applicable for this client. ll3 Outcome: 23:16 Discharge ordered by . [email or web address] 23:31 Discharged to home ambulatory, with family. ll3 23:31 Condition: stable 23:31 Discharge instructions given to patient, Instructed on discharge instructions, follow up and referral plans. medication usage, Demonstrated understanding of instructions, follow-up care, medications, Prescriptions given X 2. 23:31 Patient left the ED. ll3 Signatures: Dispatcher [employer] Chayito Molina rg4 Phil Lundberg RN RN as6 Mora Harris RN RN ll3 Serafin Conner MD MD sp4
--- NOTE | 2022-09-30 23:17 | EDPHYS ---
Physician Documentation [facility] Name: Heather Schmitt Age: 42 yrs Sex: Female : 1980 Arrival Date: 09/30/2022 Time: 19:44 Bed 20 Private MD: ED Physician Serafin Conner HPI: 09/30 19:56 This 42 yrs old Female presents to ER via Unassigned with complaints of Neck sp4 Pain, <24hrs Old, Back Pain. 23:11 42-year-old female reports that she fell on 09/17/2022 at the grocery store onto her sp4 left side causing injury to the left leg left wrist sprain and also persistent pain and neck and upper back. Patient states she has had a history of hysterectomy and bilateral salpingo-oophorectomy. Also history includes open heart surgery for atrial septal defect repair.. . 23:11 Patient is here mostly for worsening neck and upper back pain associated with a recent sp4 fall on 09/17/2022. Patient states she has had difficulty moving her arms. 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 - Social history:: Smoking status: Patient reports the use of cigarette tobacco products, smokes one-half pack cigarettes per day. - Family history:: not pertinent. ROS: 23:11 Constitutional: Negative for fever, chills, and weight loss, Eyes: Negative for injury, sp4 pain, redness, and discharge, ENT: Negative for injury, pain, and discharge, Neck: Positive for injury on 09/17/2022. Positive for persistent neck pain Back: Positive for back injury and upper back pain 23:11 All other systems are negative. Exam: 23:11 Constitutional: This is a well developed, well nourished patient who is awake, alert, sp4 and in no acute distress. Head/Face: Normocephalic, atraumatic. Eyes: Pupils equal round and reactive to light, extra-ocular motions intact. Lids and lashes normal. Conjunctiva and sclera are not injected. Cornea within normal limits. Periorbital areas with no swelling, redness, or edema. ENT: Nares patent. No nasal discharge, no septal abnormalities noted. Tympanic membranes are normal and external auditory canals are clear. Oropharynx with no redness, swelling, or masses, exudates, or evidence of obstruction, uvula midline. Mucous membranes moist. Neck: Trachea midline, no thyromegaly or masses palpated, and no cervical lymphadenopathy. Supple, full range of motion without nuchal rigidity, or vertebral point tenderness. Chest/axilla: Normal chest wall appearance and motion. Nontender with no deformity. No lesions are appreciated. Cardiovascular: Regular rate and rhythm with a normal S1 and S2. No gallops, murmurs, or rubs. Normal PMI, no JVD. No pulse deficits. Respiratory: Lungs have equal breath sounds bilaterally, clear to auscultation and percussion. No rales, rhonchi or wheezes noted. No increased work of breathing, no retractions or nasal flaring. Abdomen/GI: Soft, non-tender, with normal bowel sounds. No distension or tympany. No guarding or rebound. No evidence of tenderness throughout. Back: No spinal tenderness. No costovertebral tenderness. Skin: Warm, dry with normal turgor. Normal color with no rashes, no lesions, and no evidence of cellulitis. MS/ Extremity: Pulses equal, no cyanosis. Neurovascular intact. Full, normal range of motion. Neuro: Awake and alert, GCS 15, oriented to person, place, time, and situation. Cranial nerves II-XII grossly intact. Motor strength 5/5 in all extremities. Sensory grossly intact. Psych: Awake, alert, with orientation to person, place and time. Behavior, mood, and affect are within normal limits Vital Signs: 20:17 BP 159 / 111; Pulse 80; Resp 18 S; Temp 97.7(TE); Pulse Ox 99% on R/A; Weight 92.99 kg as6 (R); Height 5 ft. 1 in. (R); Pain 9/10; 22:32 BP 142 / 88; Pulse 60; Resp 16; Pulse Ox 98% on R/A; ll3 20:17 Body Mass Index 38.73 (92.99 kg, 154.94 cm) as6 20:17 Pain Scale: Adult as6 MDM: 20:12 Patient medically screened. sp4 23:11 Differential diagnosis: arthritis, C-Spine Fracture Cervical Disc Herniation Cervical sp4 Discogenic Pain Cervical Facet Syndrome Cervical Raiculopathy Cervical Spondylosis cervical strain. Data reviewed: vital signs, nurses notes, old medical records, lab test result(s), radiologic studies, CT scan. Consideration of Admission/Observation Escalation of care including admission/observation considered. ED course: CT C-spine and chest abdomen pelvis revealed no sign of acute traumatic injury. No sign of disc herniation. Patient will be prescribed high-dose ibuprofen and also Flexeril 3 times a day as needed for pain and muscle. Patient will be advised to see a primary care physician in 2 weeks in case pain does not improve and request MRI of the CT and L-spine. ED course: Other than that stable for discharge home. 09/30 20:11 Order name: Basic Metabolic Panel; Complete Time: 23:01 sp4 09/30 20:11 Order name: CBC with Diff; Complete Time: 23:01 sp4 09/30 20:11 Order name: CT Traumagram (Head C Spine CAP wo con); Complete Time: 23:01 sp4 09/30 20:11 Order name: Labs collected and sent; Complete Time: 20:41 sp4 Administered Medications: 21:07 Drug: Ketorolac IM 60 mg Route: IM; Site: left deltoid; ll3 22:30 Follow up: Response: No adverse reaction; Marked relief of symptoms ll3 21:07 Drug: Promethazine PO 25 mg Route: PO; ll3 22:30 Follow up: Response: No adverse reaction ll3 21:08 Drug: [place] PO 10 mg-325 mg 1 tabs Route: PO; ll3 22:30 Follow up: Response: No adverse reaction; Marked relief of symptoms ll3 21:08 Drug: Cyclobenzaprine PO 10 mg Route: PO; ll3 22:30 Follow up: Response: No adverse reaction; Marked relief of symptoms ll3 Disposition Summary: 09/30/22 23:16 Discharge Ordered Location: Home sp4 Problem: new sp4 Symptoms: have improved sp4 Condition: Stable sp4 Diagnosis - Sprain of joints and ligaments of other parts of neck sp4 - Sprain of upper thoracic ligaments, upper back pain, acute neck pain, acute pain sp4 associated with injury in the recent fall, musculoskeletal neck and back pain Followup: sp4 - With: Private Physician - When: 10 - 14 days - Reason: Recheck today's complaints Discharge Instructions: - Discharge Summary Sheet sp4 - Neck Contusion, [id number] sp4 Forms: - Work release form vc1 - Patient Portal Instructions sp4 Prescriptions: - Ibuprofen 800 mg Oral Tablet - take 1 tablet by ORAL route every 8 hours As needed take with food; 30 tablet; sp4 Refills: 0, Product Selection Permitted - Cyclobenzaprine 10 mg Oral Tablet - take 1 tablet by ORAL route every 8 hours As needed; 30 tablet; Refills: 0, sp4 Product Selection Permitted Signatures: Dispatcher [employer] Phil Villegas RN RN as6 Mora Harris RN RN ll3 Serafin Conner MD MD sp4
[2022-09-30 23:50] VITALS: TEMP 97.7
[2022-09-30 23:53] VITALS: BP 142/88; O2SAT 98
== END 2022-09-30 23:31 | disposition home or self-care (01) ==
LOC: ER 19:44
DX: S13.8XXA Sprain of joints and ligaments of other parts of neck, initial encounter (principal); S23.3XXA Sprain of ligaments of thoracic spine, initial encounter; M54.9 Dorsalgia, unspecified; F17.210 Nicotine dependence, cigarettes, uncomplicated; Z88.1 Allergy status to other antibiotic agents; Z88.6 Allergy status to analgesic agent
CPT/HCPCS: 36415; 70450; 71250; 72125; 80048; 85025; 96372; 99284; Q0169

== ENCOUNTER 2024-02-19 06:51 | Emergency (ER) | payer SELFPAY ==
--- OUTSIDE RECORDS SUMMARY | 2024-02-19 06:55 | XMS REPORT | Continuity of Care Document ---
Author Name Unknown Address [address] [facility] [address] [place] [address] [facility] thconnect Address [address] [facility] [address] [place] [address] Care Team Providers Care Surveillance Technician Name Role Phone PCP, PATIENT DOES NOT HAVE A Primary Care Physic marlena Unavailable Doctor Unassigned, Jermyn Attending Clinician U Frida Marquez DO Attending Clinician [phone] FRIDA MATA Attending Clinician Unavailab OPAL Mark Admitting Clinician Unavailable Problems Condition Name Condition Details Condition Category Status Onset Date Resolution Date Last Treatment Date Treating Clinician Comments Source No known active problems No known active problems Disease [facility] Allergies, Adverse Reactions, Alerts Allergy Name Allergy Type Status Severity Reaction(s) Onset Date Inactive Date Treating Clinician Comments Source Amoxicil glenis Propensi ty to adverse reaction s Active Rash 05-06 00:00: 00 [facility] Aspirin Propensi ty to adverse reaction s Active Rash 05-06 00:00: 00 [facility] AMOXICIL GLENIS DRUG INGREDI Active Rash 05-06 00:00: 00 [facility] ASPIRIN DRUG INGREDI Active Rash 05-06 00:00: 00 [facility] Social History Social Habit Start Date Stop Date Quantity Comments Source Exposure to SARS-CoV-2 (event) Not sure [facility] Sex Assigned At 1980 00:00:00 1980 00:00:00 [facility] Smoking Status Start Date Stop Date Source Tobacco smoking consumption unknown [facility] Medications Ordered Medication Name Filled Medication Name Start Date Stop Date Current Medication? Ordering Clinician Indication Dosage Frequency Signature (SIG) Comments Components Source FENTanyl PF (SUBLIMAZE (PF)) injection 50 mcg 05-07 04:15: 00 05-07 03:14 :00 No 50ug 50 mcg, Slow IV Push, ONCE, 1 dose, Sat05/06/20 at 2215, Routine [facility] maalox:diph enhydrAMINE :lidocaine 2 % viscous 1:1:1 (FIRST-MOUT HWASH BLM) oral suspension 15 mL 05-07 03:15: 00 05-07 03:14 :00 No 15mL 15 mL, Oral, ONCE, 1 dose, Sat05/06/20 at 2115, IRIS [facility] ondansetron (ZOFRAN (PF)) injection 4 mg 05-07 03:00: 00 05-07 03:02 :00 No 4mg 4 mg, Slow IV Push, ONCE, 1 dose, Sat05/06/20 at 2100, IRIS [facility] ketorolac (TORADOL) injection 30 mg 05-07 01:45: 00 05-07 01:51 :00 No 30mg 30 mg, Slow IV Push, ONCE, 1 dose, Sat05/06/20 at 1945, IRIS
Fa culty member approving Restricted medication : FRIDA MATA [facility] sodium chloride (NS) injection 5 mL 05-07 00:54: 41 Yes 5mL 5 mL, Intravenou s, PRN, Starting Sat05/06/20 at 1854, Until Discontinu ed, Routine, IV line flushing [facility] No known medications 05-06 19:29: 13 No No known medication s [facility] No known medications No Un shady [facility] Vital Signs Vital Name Observation Time Observation Value Comments S ource Systolic blood pressure 2020-05-07 05:00:00 135 mm[Hg] [facility] Diastolic blood pressure 2020-05-07 05:00:00 76 mm[Hg] [facility] Heart rate 2020-05-07 05:00:00 63 /min Unive [facility] Respiratory rate 2020-05-07 05:00:00 20 /min [facility] Oxygen saturation in Arterial blood by Pulse oximetry 2020-05-07 05:00:00 95 /min [facility] Body temperature 2020-05-07 00:50:00 37 Lacy [facility] Body height 2020-05-07 00:48:00 157.5 cm [facility] Body weight 2020-05-07 00:48:00 97.523 kg [facility] BMI 2020-05-07 00:48:00 39.32 kg/m2 [facility] Systolic blood pressure 2020-05-07 05:00:00 135 mm[Hg] [facility] Diastolic blood pressure 2020-05-07 05:00:00 76 mm[Hg] [facility] Heart rate 2020-05-07 05:00:00 63 /min [facility] 2020-05-07 05:00:00 20 /min [facility] Oxygen saturation in Arterial blood by Pulse oximetry 2020-05-07 05:00:00 95 /min [facility] Body temperature 2020-05-07 00:50:00 37 Lacy [facility] Body height 2020-05-07 00:48:00 157.5 cm [facility] Body weight 2020-05-07 00:48:00 97.523 kg [facility] BMI 2020-05-07 00:48:00 39.32 kg/m2 [facility] Procedures Procedure Date / Time Performed Performing Clinician Source REFERRAL- REQUEST/RESPONSE 2021-07-21 05:01:00 Doctor Unassigned, Jermyn [facility] TROPONIN I 2020-05-07 03:04:00 [facility] VW 2020-05-07 01:09:33 Opal Robertson [facility] NOTICE OF PRIVACY PRACTICES 2020-05-07 01:09:22 Doctor Unassigned, Jermyn [facility] LIPASE 2020-05-07 00:57:00 [facility] TROPONIN I 2020-05-07 00:57:00 [facility] COMP. METABOLIC PANEL ([id number]) 2020-05-07 00:57:00 Singer [facility] CBC WITH DIFF 2020-05-07 00:57:00 Singer [facility] PROTHROMBIN TIME / INR 2020-05-07 00:57:00 Obed Robertson [facility] ACTIVATED PARTIAL THRMPLAS SUSAN 2020-05-07 00:57:00 Singer [facility] N-TERMINAL PRO-BNP 2020-05-07 00:57:00 Alivia Mata [facility] CONSENT/REFUSAL FOR DIAGNOSIS AND TREATMENT 2020-05-07 00:39:34 Doctor Unassigned, Jermyn [facility] Encounters Start Date/Time End Date/Time Encounter Type Admission Type Attending [facility] Care Facility Care Department Encounter ID Source 2023-05-28 15:29:45 2023-05-28 15:29:45 Outpatient SFA SFA [id number] Sawyer [place] 2023-03-21 08:22:33 2023-03-21 08:22:33 Outpatient SFA SFA [id number] Saw[facility] [place] [facility] 2023-03-13 11:02:53 2023-03-13 11:02:53 Outpatient SFA [id number] [id number] Saw[facility] [place] [facility] 2022-07-14 14:20:50 2022-07-14 14:20:50 Outpatient SFA SFA [id number] Saw[facility] [place] 2022-07-12 14:06:26 2022-07-12 14:06:26 Outpatient SFA [id number] [id number] Sawyer [place] [facility] 2022-05-02 17:36:14 2022-05-02 17:36:14 Outpatient SFA SFA [id number] Sawyer [place] 2021-07-21 00:00:00 2021-07-21 00:00:00 Orders Only Doctor Unassigned, Jermyn [facility] [id number] [facility] 2020-05-06 18:43:00 2020-05-06 23:57:00 Emergency Frida Mata [facility] [id number] [facility] 2020-05-06 18:43:00 2020-05-06 23:57:00 Emergency X FRIDA MATA [facility] ERT [id number] [facility] 2020-05-06 18:43:00 2020-05-06 23:57:00 Emergency Frida Mata [facility] [id number] Results Test Description Test Time Test Comments Results Result Co mments Source SARS-CoV-2 (COVID-19), RT-PCR/[id number] 14:21:21* Test Item Value Reference Range Interpretation Comments SARS-CoV-2 INTERPRETATION (test code = 00813) NEGATIVE SEE NOTE SARS-CoV-2 R NA NOT DETECTEDNegative results do not preclude SARS-CoV-2 infection and should notbe used as the sole basis for patient management decisions. Negativeresults must be combined with clinical observations, patient history,and epidemiological information. Optimum specimen types and timingfor peak viral levels during infections caused by SARS-CoV-2 have notbeen determined. Collection of multiple specimens or types ofspecimens may be necessary to detect virus. Improper specimencollection and handling, sequence variability under primers/probes,or organism present below the limit of detection may lead to falsenegative results. Positive and negative predictive values oftesting are highly dependent on prevalence. False negative testresults are more likely when prevalence is high. SOURCE (test code = 37896) NASOPHARYNGEAL Note: Methodolog y is Souleymane Wendi Real-Time RT-PCR. The expected result or reference range is NEGATIVE (Not Detected). For more information regarding COVID-19 testing to include clinicalinformation, methodology detail, intended use, FDA authorization andrecommended fact sheets for patients or healthcare providers, see ClassifEye Announcement: SARS-CoV-2 (COVID-19) by NAAT at URL below (note,fact sheets are provided by method given in report:[email or web address]/ Alternatively, see downloadable PDF fact sheet at:[email or web address] UNLESS OTHERWISE INDICATED, ALL TESTING PERFORMED [facility] PATHOLOG[facility] [employer], [facility]. [address] [place] [address] [employer]: JACOB LAM M.D. CLIA NUMBER [id number] [facility] [place]. [id number] Troponin [id number] 03:35:00* Test Item Value Reference Range Interpretation Comme nts TROPONIN I (test code = 9430083976) 0.001 ng/mL See_Comment [Automated message] The system which generated this result transmitted reference range: <=0.034. The reference range was not used to interpret this result as normal/abnormal. AMADOU (test code = AMADOU) Equal or [...] use of biotin. ? Lab Interpretation (test code = 43893-8) [facility] [id number] 02:42:22No acute cardiopulmonary abnormality. Preliminary Report Dictated by Resident: Flaca Bowden MD., have reviewed this study and agree with daxa report.XR CHEST 1 VW HISTORY: 40 years-old; Female; cp COMPARISON: None TECHNIQUE: SINGLE VIEW CHEST RADIOGRAPH. FINDINGS: The lungs are well-expanded and clear with no focal consolidation. There isno pleural effusion or pneumoth orax. The cardiac silhouette is within normal limits. [...] acute cardiopulmonary abnormality.Preliminary Report Dictated by Resident: Flaca Harvey MD., have reviewed this study and agree with elissa levive report.[facility] [id number] 02:00:00* Test Item Value Reference Range Interpretation Comme nts NT-proBNP (test code = 9993578833) 126 pg/mL See_Comment H [Automated message] The system which generated this result transmitted reference range: <=125. The reference range was not used to interpret this result as normal/abnormal. AMADOU (test code = AMADOU) Biotin has been reported to cause a negative bias, interpret results relative to patient's use of biotin. Lab Interpretation (test code = 01129-7) Abnormal [facility] [id number] 01:53:00* Test Item Value Reference Range Interpretation Comme nts TROPONIN I (test code = 0930157797) 0.002 ng/mL See_Comment [Automated message] The system which generated this result transmitted reference range: <=0.034. The reference range was not used to interpret this result as normal/abnormal. AMADOU (test code = AMADOU) Equal or [...] use of biotin. ? Lab Interpretation (test code = 10285-2) [facility] METABOLIC PANEL (87373)2020-05-07 01:43:00* Test Item Value Reference Range Interpretation Comme nts NA (test code = 7158488693) 140 mmol/L 135-145 K (test code = 8486608841) 3.8 mmol/L 3.5-5 CL (test code = 3643976018) 104 mmol/L 98-108 CO2 TOTAL (test code = 6766306450) 29 mmol/L 23-31 AGAP (test code = 8903797835) 2-16 BUN (test code = 1075112570) 15 mg/dL 7-23 GLUCOSE (test code = 7192446217) 85 mg/dL 70-110 CREATININE (test code = 2596034016) 0.69 mg/dL 0.5-1.04 TOTAL BILI (test code = 0971858175) 0.5 mg/dL 0.1-1.1 CALCIUM (test code = 7609081516) 10.0 mg/dL 8.6-10.6 T PROTEIN (test code = 5501444100) 7.6 g/dL 6.3-8.2 ALBUMIN (test code = 3629085259) 4.4 g/dL 3.5-5 ALK PHOS (test code = 3877557297) 126 U/L 34-122 H ALTv (test code = 1742-6) 21 U/L 5-35 AST(SGOT) (test code = 3516872880) 25 U/L 13-40 eGFR Calculation (Non-) (test code = 5769141043) mL/min/1.73m2 eGFR Calculation () (test code = 6422886033) mL/min/1.73m2 AMADOU (test code = AMADOU) Association of [...] or abnormalities in imaging tests). Lab Interpretation (test code = 60384-1) [facility], [id number] 01:42:00* Test Item Value Reference Range Interpretation Comme nts LIPASE (test code = 1285772355) 72 U/L 0-220 Lab Interpretation (test cod e = 17185-1) Normal [facility] DallasaPTT2021-03-06 01:39:00* Test Item Value Reference Range Interpretation Comme [facility] APTT Patient (test code = 3173-2) See_Comment [Automated message] The system which generated this result transmitted reference range: 23 - 38 Seconds. The reference range was not used to interpret this result as normal/abnormal. AMADOU (test code = AMADOU) The [facility] patient population mean normal value for aPTT is 30 seconds. Lab Interpretation (test code = 62311-6) Normal [facility] / [id number] 01:36:00* Test Item Value Reference Range Interpretation Comme [facility] PROTIME PATIENT (test code = 5964-2) See_Comment [Automated DailyDigitala ge] The system which generated this result transmitted reference range: 12.0 - 14.7 Seconds. The reference range was not used to interpret this result as normal/abnormal. INR (test code = 6301-6) Normal INR <1.1; Warfarin Therapeutic range 2.0 to 3.0 or 2.5 to 3.5, depending upon the indications. Lab Interpretation (test code = 96110-4) Normal [facility]CBC WITH [id number] 01:32:00* Test Item Value Reference Range Interpretation Comme [facility] WBC (test code = 6690-2) See_Comment H [Automated DailyDigitala ge] The system which generated this result transmitted reference range: 4.30 - 11.10 10*3/?L. The reference range was not used to interpret this result as normal/abnormal. RBC (test code = 789-8) See_Comment [Automated Daily[employer] ge] The system which generated this result transmitted reference range: 3.93 - 5.25 10*6/?L. The reference range was not used to interpret this result as normal/abnormal. HGB (test code = 718-7) 15.1 g/dL 11.6-15 H HCT (test code = 4544-3) 45.0 % 35.7-45.2 MCV (test code = 787-2) 89.5 fL 80.6-95.5 MCH (test code = 785-6) 30.0 pg 25.9-32.8 MCHC (test code = 786-4) 33.6 g/dL 31.6-35.1 RDW-SD (test code = 51436-1) 42.9 fL 39-49.9 RDW-CV (test code = 788-0) 13.1 % 12-15.5 PLT (test code = 777-3) See_Comment H [Automated messa ge] The system which generated this result transmitted reference range: 166 - 358 10*3/?L. The reference range was not used to interpret this result as normal/abnormal. MPV (test code = 81738-6) 11.1 fL 9.5-12.9 NRBC/100 WBC (test code = 4147528008) See_Comment [Automated [employer] ssage] The system which generated this result transmitted reference range: 0.0 - 10.0 /100 WBCs. The reference range was not used to interpret this result as normal/abnormal. NRBC x10^3 (test code = 1056872563) <0.01 See_Comment [Automated messa ge] The system which generated this result transmitted reference range: 10*3/?L. The reference range was not used to interpret this result as normal/abnormal. GRAN MAT (NEUT) % (test code = 770-8) 58.0 % IMM GRAN % (test code = 1521440362) 0.50 % LYMPH % (test code = 736-9) 32.3 % MONO % (test code = 5905-5) 6.7 % EOS % (test code = 713-8) 1.6 % BASO % (test code = 706-2) 0.9 % GRAN MAT x10^3(ANC) (test code = 5240897612) 6.47 10*3/uL 1.88-7.09 IMM GRAN x10^3 (test code = 7472621538) 0.06 10*3/uL 0-0.06 LYMPH x10^3 (test code = 731-0) 3.61 10*3/uL 1.32-3.29 H MONO x10^3 (test code = 742-7) 0.75 10*3/uL 0.33-0.92 EOS x10^3 (test code = 711-2) 0.18 10*3/uL 0.03-0.39 BASO x10^3 (test code = 704-7) 0.10 10*3/uL 0.01-0.07 H Lab Interpretation (test code = 27830-3) Abnormal [facility]"
[2024-02-19 07:35] LABS: Absolute Basophils 0.1 K/uL (0-0.5); Absolute Eosinophils 0.3 K/uL (0-0.5); Absolute Lymphocytes (CBC) 3.2 K/uL (0.7-4.9); Absolute Monocytes 0.7 K/uL (0.1-1.3); Absolute Neutrophil 6.7 K/uL (1.8-8.0); Basophils % 1.2 % (0-1.3); Eosinophils % 2.7 % (0-4.4); Hematocrit 46.6 % (36.0-45.0); Hemoglobin 15.3 g/dL (12.0-15.0); Lymphocytes % 29.2 % (15.3-44.8); MCH 29.6 pg (27.0-35.0); MCHC 32.9 g/dL (32.0-36.0); MCV 90.2 fL (80-100); MPV 8.9 fL (7.6-11.3); Monocytes % 6.3 % (3.3-12.3); Neutrophils % 60.6 % (41.7-73.7); Platelets 332 thou/uL (152-406); RBC Red Blood Cell Count 5.17 M/uL (3.86-4.86); Red Cell Distribution Width 13.8 % (12.1-15.2)
--- NOTE | 2024-02-19 07:49 | RAD REPORT ---
EXAMINATION: US LEFT UPPER EXTREMITY VENOUS DOPPLER CLINICAL INDICATION: PAIN TECHNIQUE: Complete bilateral duplex sonography of the LEFT upper extremity veins was performed. The examination included compression for vein patency, color Doppler imaging and flow augmentation in response to distal compression of the internal jugular, brachiocephalic, subclavian, axillary, brachi al, radial, ulnar, cephalic and basilic veins. COMPARISON: No prior exam. FINDINGS: Duplex sonography testing of the veins of the LEFT upper extremity was performed. Color flow imaging shows all veins to be compressible with aanv-ed-ldno color filling. Pulsatile and phasic flow is present within all upper extremity deep and superficial veins examined. IMPRESSION: There is no deep vein or superficial vein thrombosis.
[2024-02-19 07:52] LABS: Anion Gap 5.7 mEq/L (5.0-15.0); Potassium 3.7 mEq/L (3.5-5.1); Uric Acid 4.6 mg/dL (2.6-6.0)
--- NOTE | 2024-02-19 08:16 | RAD REPORT ---
EXAMINATION:Upper Ext Artery Uni Javan CLINICAL INDICATION: Female, 44 years old. PAIN TECHNIQUE: Arterial duplex ultrasound was performed of the left upper extremity with real-time, color -flow, and spectral wave Doppler evaluation. Ankle brachial indices were not performed. COMPARISON: No prior exam. FINDINGS: No significant plaque throughout the evaluated arterial system. Normal waveforms and velocity measurements left upper extremity arterial system. IMPRESSION: No flow abnormality is detected.
--- NOTE | 2024-02-19 09:29 | RAD REPORT ---
EXAMINATION: XR LEFT WRIST CLINICAL INDICATION: PAIN TECHNIQUE: Multiple projections of the left wrist were obtained. COMPARISON: No prior exam. FINDINGS: No bone or joint abnormality seen.
--- NOTE | 2024-02-19 09:58 | EDPHYS ---
Physician Documentation [facility] Name: Heather Schmitt Age: 44 yrs Sex: Female : 1980 Arrival Date: 02/19/2024 Time: 06:51 Bed 19 Private MD: ED Physician Josh Gill HPI: 02/18 07:32 This 44 yrs old Female presents to ER via Ambulatory with complaints of arm pain. rn 07:33 The patient or guardian reports pain. The complaints affect the left wrist diffusely. rn Onset: The symptoms/episode began/occurred 1 week(s) ago. Modifying factors: The symptoms are alleviated by splinting, the symptoms are aggravated by movement. Associated signs and symptoms: Pertinent negatives: cyanosis distally, decreased sensation distally, fever, numbness distally, tingling distally. The patient has not experienced similar symptoms in the past. Patient reports left wrist and forearm pain on the ulnar side. Reports started when she was changing a baby a week ago. Increased pain with rotation and movement and palpation on the ulnar side. No fever or chills. No history of gout or inflammatory arthritis. Denies focal trauma. No history of DVT. Reports trying splinting and Motrin without much help. Symptoms have not gotten worse but they are not getting better either. 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 - Infectious Disease History:: Denies. - Family history:: not pertinent. - Social history:: Smoking status: unknown. - Hospitalizations: : No recent hospitalization is reported. ROS: 07:33 Constitutional: Negative for fever, chills, and weight loss, Neck: Negative for injury, rn pain, and swelling, Cardiovascular: Negative for chest pain, palpitations, and edema, Respiratory: Negative for shortness of breath, cough, wheezing, and pleuritic chest pain, Abdomen/GI: Negative for abdominal pain, nausea, vomiting, diarrhea, and constipation, MS/Extremity: Positive for left wrist and forearm pain Skin: Negative for injury, rash, and discoloration, Neuro: Negative for headache, weakness, numbness, tingling, and seizure, Exam: 07:33 Constitutional: This is a well developed, well nourished patient who is awake, alert, rn and in no acute distress. Cardiovascular: Regular rate and rhythm. No pulse deficits. Respiratory: No increased work of breathing, no retractions or nasal flaring. Skin: Warm, dry with normal turgor. Normal color with no rashes, no lesions, and no evidence of cellulitis. MS/ Extremity: Pulses equal, no cyanosis. Neurovascular intact. Painful range of motion at wrist and at forearm on the ulnar side with rotation and palpation along ulnar shaft. Patient with erythema of the skin and warmth along the ulna side of forearm. No open wounds. No evidence of lymphangitis or streaking. Vital Signs: 07:10 BP 146 / 110; Pulse 73; Resp 16; Temp 96.9(TE); Pulse Ox 99% on R/A; Weight 97.52 kg; iw Height 5 ft. 1 in. ; Pain 6/10; 09:22 BP 141 / 73; Pulse 70; Resp 18; Pulse Ox 98% on R/A; db 10:00 BP 118 / 63; Pulse 66; Resp 16; Pulse Ox 97% on R/A; db 07:10 Body Mass Index 40.62 (97.52 kg, 154.94 cm) iw 07:10 Pain Scale: Adult iw MDM: 06:58 Medical Screening Exam initiated rn 09:55 Differential diagnosis: tendonitis, Cellulitis, strain, sprain. Data reviewed: vital rn signs, nurses notes, radiologic studies, plain films, ultrasound, and as a result, I will discharge patient. Counseling: I had a detailed discussion with the patient and/or guardian regarding the historical points, exam findings, and any diagnostic results supporting the discharge/admit diagnosis, lab results, radiology results, the need for outpatient follow up, to return to the emergency department if symptoms worsen or persist or if there are any questions or concerns that arise at home. Special discussion: I discussed with the patient/guardian in detail that at this point there is no indication for admission to the hospital. It is understood, however, that if the symptoms persist or worsen the patient needs to return immediately for re-evaluation. Based on the history and exam findings, there is no indication for further emergent testing or inpatient evaluation. I discussed with the patient/guardian the need to see the orthopedic surgeon for further evaluation of the symptoms. ED course: Patient with negative ultrasound arterial and venous of the extremity. X-rays negative for fracture or dislocation per my interpretation. Given that pain started while changing baby and has been going on for a week, afebrile and no IV drug use, and combination with signs of cellulitis along the ulnar side where patient is hurting, less likely that this is septic wrist. Will put on antibiotics and pain medication with a splint and asked to follow-up closely with orthopedics and given return precautions.. 02/18 07:14 Order name: CBC with Diff; Complete Time: 09:00 rn 02/18 07:14 Order name: Basic Metabolic Panel; Complete Time: 09:00 rn 02/18 07:14 Order name: Uric Acid; Complete Time: 09:00 rn 02/18 07:14 Order name: XRAY Wrist LEFT 3 view; Complete Time: 09:41 rn 02/18 07:35 Order name: UPPER EXTREMITY VENOUS UNILATE; Complete Time: 09:00 EDMS 02/18 07:36 Order name: Upper Ext Artery Uni Javan; Complete Time: 09:00 EDMS 02/18 07:14 Order name: IV Start; Complete Time: 07:27 rn 02/18 09:55 Order name: Splint - Volar Wrist Splint; Complete Time: 10:08 rn Administered Medications: 10:08 Drug: Trimethoprim-Sulfamethoxazole PO (160 mg-800 mg (DS) 1 tablet PO once Route: PO; db 10:19 Follow up: Response: No adverse reaction db 10:08 Drug: traMADol PO 50 mg PO once Route: PO; db 10:19 Follow up: Response: No adverse reaction db Disposition Summary: 02/19/24 09:57 Discharge Ordered Notes: Location: Home rn Problem: new rn Symptoms: are unchanged rn Condition: Stable rn Diagnosis - Pain in left arm rn - Cellulitis of left upper limb rn Followup: rn - With: Abdon Benavides MD - When: 2 - 3 days - Reason: Recheck today's complaints, Re-evaluation by your physician Discharge Instructions: - Discharge Summary Sheet rn - Cast or Splint Care, Adult rn - Cellulitis, Adult rn - Musculoskeletal Pain rn Forms: - Medication Reconciliation Form rn - Antibiotic medical technologist prn - Prescription Opioid Use rn - Patient Portal Instructions rn - Leadership Thank You Letter rn - Work release form db - Family Work Release db Prescriptions: - Tramadol 50 mg Oral Tablet - take 1 tablet ORAL route every 8 hours as needed; 12 tablet; Refills: 0, rn Product Selection Permitted - Bactrim DS 800-160 mg Oral Tablet - take 1 tablet ORAL route every 12 hours for 10 days; 20 tablet; Refills: 0, rn Product Selection Permitted Signatures: Dispatcher [employer] Inga Hills RN RN iw Nieto, Roman, MD MD rn Benton, Danielle, RN RN db Corrections: (The following items were deleted from the chart) 07:15 07:15 CBC+H.LAB.BRZ ordered. EDMS EDMS 07:15 07:15 BASIC METABOLIC PANEL+C.LAB.BRZ ordered. EDMS EDMS 07:15 07:15 URIC ACID+C.LAB.BRZ ordered. EDMS EDMS 07:35 07:15 Extremity Venous Uni Ltd+US.RAD.BRZ ordered. EDMS EDMS 07:36 07:15 Lower Extremity Artery Uni Ltd+US.RAD.BRZ ordered. EDMS EDMS 09:54 07:33 Constitutional: This is a well developed, well nourished patient who is awake, rn alert, and in no acute distress. Cardiovascular: Regular rate and rhythm. No pulse deficits. Respiratory: No increased work of breathing, no retractions or nasal flaring. Skin: Warm, dry with normal turgor. Normal color with no rashes, no lesions, and no evidence of cellulitis. MS/ Extremity: Pulses equal, no cyanosis. Neurovascular intact. Painful range of motion at wrist and at forearm on the ulnar side with rotation and palpation along ulnar shaft. No erythema or warmth. No open wounds. No evidence of lymphangitis or streaking. rn
--- NOTE | 2024-02-19 09:58 | ER ---
Nurse's Notes [facility] Name: Heather Schmitt Age: 44 yrs Sex: Female : 1980 Arrival Date: 02/19/2024 Time: 06:51 Bed 19 Private MD: Diagnosis: Pain in left arm;Cellulitis of left upper limb Presentation: 02/18 07:10 Chief complaint: Patient states: left hand/wrist pain X 1 week, denies injury. iw Coronavirus screen: At this time, the client does not indicate any symptoms associated with coronavirus-19. Ebola Screen: No symptoms or risks identified at this time. Initial Sepsis Screen: Does the patient meet any 2 criteria? No. Patient's initial sepsis screen is negative. Does the patient have a suspected source of infection? No. Patient's initial sepsis screen is negative. Risk Assessment: Do you want to hurt yourself or someone else? Patient reports no desire to harm self or others. Onset of symptoms was February 12, 2024. 07:10 Method Of Arrival: Ambulatory iw 07:12 Acuity: JORDYN 3 iw Triage Assessment: 07:12 General: Appears in no apparent distress. uncomfortable, Behavior is calm, cooperative. iw Pain: Complains of pain in left hand and left wrist. 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 - Infectious Disease History:: Denies. - Family history:: not pertinent. - Social history:: Smoking status: unknown. - Hospitalizations: : No recent hospitalization is reported. Screenin:25 [facility] ED Fall Risk Assessment (Adult) History of falling in the last 3 months, db including since admission No falls in past 3 months (0 pts) Confusion or Disorientation No (0 pts) Intoxicated or Sedated No (0 pts) Impaired Gait No (0 pts) Mobility Assist Device Used No (0 pt) Altered Elimination No (0 pt) Score/Fall Risk Level 0 - 2 = Low Risk Oriented to surroundings, Maintained a safe environment. Abuse screen: Denies threats or abuse. Denies injuries from another. Nutritional screening: No deficits noted. Tuberculosis screening: No symptoms or risk factors identified. Assessment: 07:25 General: Appears in no apparent distress. comfortable, Behavior is calm, cooperative. db Neuro: Level of Consciousness is awake, alert, obeys commands, Oriented to person, place, time, situation. Respiratory: Airway is patent Respiratory effort is even, unlabored, Respiratory pattern is regular, symmetrical. Musculoskeletal: Circulation, motion, and sensation intact. Capillary refill < 3 seconds, Range of motion: limited in left wrist Reports pain in left hand and left wrist. 07:27 Reassessment: Patient appears in no apparent distress at this time. Patient and/or db family updated on plan of care and expected duration. Pain level reassessed. Patient is alert, oriented x 3, equal unlabored respirations, skin warm/dry/pink. ULTRASOUND IS AT PATIENT BEDSIDE. 09:33 Reassessment: Patient appears in no apparent distress at this time. Patient and/or db family updated on plan of care and expected duration. Pain level reassessed. Patient is alert, oriented x 3, equal unlabored respirations, skin warm/dry/pink. General: Appears in no apparent distress. comfortable, Behavior is calm, cooperative. 10:00 Reassessment: Patient appears in no apparent distress at this time. Patient and/or db family updated on plan of care and expected duration. Pain level reassessed. Patient is alert, oriented x 3, equal unlabored respirations, skin warm/dry/pink. Vital Signs: 07:10 BP 146 / 110; Pulse 73; Resp 16; Temp 96.9(TE); Pulse Ox 99% on R/A; Weight 97.52 kg; iw Height 5 ft. 1 in. ; Pain 6/10; 09:22 BP 141 / 73; Pulse 70; Resp 18; Pulse Ox 98% on R/A; db 10:00 BP 118 / 63; Pulse 66; Resp 16; Pulse Ox 97% on R/A; db 07:10 Body Mass Index 40.62 (97.52 kg, 154.94 cm) iw 07:10 Pain Scale: Adult iw ED Course: 06:55 Patient arrived in ED. gm2 06:57 Josh Gill MD is Attending Physician. rn 07:11 Triage completed. iw 07:11 Arm band placed on. iw 07:17 Graciela Andrews, ELLIE is Primary Nurse. db 07:25 Patient has correct armband on for positive identification. Bed in low position. Call db light in reach. Side rails up X 1. Pulse ox on. NIBP on. Warm blanket given. 07:25 Initial lab(s) drawn, by me, sent to lab. Inserted saline lock: 22 gauge in right db antecubital area, using aseptic technique. Blood collected. Flushed with 10 mL NS. 07:44 UPPER EXTREMITY VENOUS UNILATE In Process Unspecified. EDMS 07:44 Upper Ext Artery Uni Javan In Process Unspecified. EDMS 08:45 XRAY Wrist LEFT 3 view In Process Unspecified. EDMS 09:57 Abdon Benavides MD is Referral Physician. rn 10:18 Provided Education on: PRESCRIPTIONS, DISCHARGE AND FOLLOWUP. db 10:18 No provider procedures requiring assistance completed. IV discontinued, intact, db bleeding controlled, No redness/swelling at site. Administered Medications: 10:08 Drug: Trimethoprim-Sulfamethoxazole PO (160 mg-800 mg (DS) 1 tablet PO once Route: PO; db 10:19 Follow up: Response: No adverse reaction db 10:08 Drug: traMADol PO 50 mg PO once Route: PO; db 10:19 Follow up: Response: No adverse reaction db Medication: 07:25 VIS not applicable for this client. db Outcome: 09:57 Discharge ordered by . rn 10:18 Discharged to home ambulatory, with family, db 10:18 Condition: stable 10:18 Discharge instructions given to patient, family, Instructed on discharge instructions, follow up and referral plans. Prescriptions given X 2, 10:20 Patient left the ED. db Signatures: Dispatcher [employer] Inga Hills, Josh Gonzalez RN, MD MD rn Benton, Danielle, RN RN db Mitchell, Ginger gm2 Corrections: (The following items were deleted from the chart) 07:12 07:10 Acuity: JORDYN 4 iw iw 07:12 07:10 BP 146 / 110; Pulse 73bpm; Resp 16bpm; Pulse Ox 99% RA; iw iw 07:14 07:10 BP 146 / 110; Pulse 73bpm; Resp 16bpm; Pulse Ox 99% RA; iw iw
[2024-02-19] MEDS ORDERED: SMZ./TMP. 800/160 MG TABLET ONE (09:59)
[2024-02-19] MEDS ORDERED: TRAMADOL HCL 50 MG TAB ONE (10:00)
[2024-02-19 10:27] VITALS: TEMP 96.9
[2024-02-19 10:30] VITALS: BP 118/63; O2SAT 97
== END 2024-02-19 10:20 | disposition home or self-care (01) ==
LOC: ER 06:51
DX: M25.532 Pain in left wrist (principal); L03.114 Cellulitis of left upper limb; Z88.1 Allergy status to other antibiotic agents; Z88.6 Allergy status to analgesic agent
CPT/HCPCS: 36415; 80048; 84550; 85025; 93931; 93971; 99284